=== PATIENT | female | born 1950 | race Caucasian/White ===

== ENCOUNTER 2022-05-23 11:02 | Outpatient (REF) | payer MEDICARE, OTHER, SELFPAY ==
--- NOTE | ~2022-05-23 | XR_ITS ---
EXAMINATION: XR KNEE, LEFT CLINICAL INFORMATION: Pain. COMPARISON: None available. TECHNIQUE: Four views of the left knee. FINDINGS: There is mild reduction in tricompartment joint space. No bony erosive changes, acute fracture or dislocation. There are 2 loose body seen lateral to the patella the larger one inferiorly measures 8mm and the smaller 1's. And lateral patella measures 7 mm. There is minimal suprapatellar joint effusion. A small anterior superior patellar enthesophyte is noted. XR/XR knee LT 4V IMPRESSION: 1. Mild degenerative changes left knee with minimal suprapatellar joint effusion. 2. There are 2 loose bodies seen lateral to the patella. 3. No acute fracture or dislocation seen.
== END 2022-05-23 11:03 | disposition home or self-care (01) ==
LOC: HO.HMGCX 11:02
PROVIDERS: Visit Provider Internal Medicine
DX: M25.562 Pain in left knee (principal)
CPT/HCPCS: 73564

== ENCOUNTER 2023-03-22 12:33 | Emergency (ER) | payer MEDICARE, OTHER, SELFPAY ==
[2023-03-22 12:46] VITALS: BP 154/72; PULSE 70; RESP 18; TEMP 37; O2SAT 100; BMI 38.0
--- NOTE | 2023-03-22 12:46 | ED_ITS ---
HPI - Abdominal Pain General Chief Complaint: Abdominal Pain Stated Complaint: Abd pain Time Seen by Provider: 03/22/23 15:00 Source: patient and family Mode of arrival: ambulatory Limitations: no limitations History of Present Illness HPI narrative: Patient is a 72-year-old female presenting to the emergency department with complaint of episode of epigastric/sternal pain which began this morning after eating breakfast. Patient reports that the pain lasted for approximately 30 minutes. She took Tums with gradual relief. She complains of some belching and mild nausea. Denies associated dyspnea, palpitations. Denies fevers. Denies recent calf pain or swelling, lower extremity edema. She reports similar episode of pain 2-3 days ago, but rates that pain at 4 or 5/10, and rates today's episode as 10/10. Also reports an episode of pain to posterior aspect of left upper arm 2 days ago, separate from the episode of epigastric pain 2 days ago. History of frozen shoulder, but states does not typically get pain to her upper arm. Arm pain has since resolved and has not returned. She is pain free at this time. Denies any vomiting, diarrhea, or constipation. Denies urinary symptoms. MD elicited complaint: abdominal pain Onset (ago): hour(s) Pain Consistency: now resolved Location: epigastric Severity: severe Pain scale (0-10): 10 Quality: sharp Radiation: none Migration to: no migration Exacerbating factors: nothing Relieving factors: medication Associated symptoms: denies other symptoms Treatments prior to arrival: antacids Related Data Previous Rx's Medication Instructions Recorded cephalexin 500 mg capsule 500 mg PO BID #14 caps 03/22/23 Allergies Allergy/AdvReac Type Severity Reaction Status Date / Time No Known Allergies Allergy Verified 03/22/23 12:50 Review of Systems Review of Systems As per HPI. Yes all other systems are reviewed and are negative Constitutional: Reports as per HPI [facility] Social History Social History Patient Tobacco Use Status: Never used Tobacco Advance Directives: No Advance Directives Information Provided: Yes Physical Exam ED Vital Signs: Vital Signs - 24 hr 03/22/23 12:46 03/22/23 14:00 03/22/23 16:00 Temperature 98.6 F 98.0 F 98.1 F Pulse Rate 70 61 59 Respiratory Rate 18 16 Blood Pressure 154/72 H 150/59 H 148/61 H Pulse Oximetry 100 96 96 Oxygen Delivery Method Room Air Room Air Room Air 03/22/23 17:14 Temperature 97.9 F Pulse Rate 62 Respiratory Rate 16 Blood Pressure 189/82 H Pulse Oximetry 97 Oxygen Delivery Method Room Air BMI result Body Mass Index 38.0 Vital signs have been reviewed and appear to be correct. Blood pressure elevated. Heart rate normal. Respiratory rate normal. Temperature normal. Oxygen saturation normal. Const General: cooperative, healthy appearing and no acute distress Orientation/consciousness: oriented to person, oriented to place, oriented to time and patient oriented x3 Limitations: no limitations HENMT Head: Yes normocephalic and Yes atraumatic Ears: external ears normal General nose exam: Normal external nose present Face and sinus: Yes face symmetric Mouth: oropharynx normal and moist mucous membranes Throat: Yes uvula midline Eyes Pupils: Equal, round and reactive pupils present Neck Neck: Yes normal visual inspection and Yes supple Resp Effort & Inspection: normal respiratory effort and able to speak in complete sentences Auscultation: clear to auscultation bilaterally Cardio Rate: regular rate Rhythm: regular rhythm Heart sounds: S1 normal heart sound present and S2 normal heart sound present GI Palpation (GI): Soft to palpation and nontender Auscultation: normoactive bowel sounds General: Yes no CVA tenderness Back/Spine/Pelvis Back: no CVA tenderness Skin General skin exam: elasticity normal and turgor normal Neuro General: oriented to person, oriented to place, oriented to time, patient oriented x3, moves all extremities, no focal motor deficits and CN's II-XI intact bilaterally Cranial nerves: Yes Equal, round and reactive pupils present Cognition (Neuro): normal cognition Extrem General: Yes full ROM, Yes no pedal edema and Yes no calf tenderness Psych Mental Status: mental status grossly normal Affect: normal affect Thought process: Normal thought process present Course Course Course Narrative: This is an RME: Additional HPI, ROS, PE not included below will be deferred to primary provider. Patient is a 72-year-old female presents emergency department for evaluation of abdominal pain. Reports that she had breakfast and then noticed the pain a couple hours later, localized to the epigastric region. Reports nausea and feeling fatigued. No vomiting, fevers, chills. Reports it does not feel like typical indigestion that she would experience. Plan: Labs, EKG Reevaluation(s) Reevaluation #1: 1615-I received sign-out on this patient pending a repeat troponin. Her initial troponin and EKG were reassuring. Reevaluation #2: 1750-patient's repeat troponin was negative. Patient reports no chest pain since being here in the emergency room. Her UA is consistent with UTI. She has no back pain or abdominal seen to suggest pyelonephritis or renal colic. I will treat her with an oral antibiotic. Reviewed worrisome signs and symptoms of when to return to the emergency room. Comfortable plan for discharge home. Medical Decision Making Medical Decision Making [facility] [place] Narrative: Patient is a 72-year-old female presenting to the emergency department with complaint of episode of epigastric/sternal pain which began this morning after eating breakfast. On exam patient is awake, A+Ox3, BP elevated, VS otherwise WNL, afebrile, normal neurological exam without focal deficits, physical exam findings as above. Given reported symptoms and physical exam findings, initial differential includes ACS/AZ, GERD, PUD, gastritis. Labs notable for negative troponin, no significant electrolyte abnormalities, very slightly elevated ALT. EKG shows normal sinus rhythm. HEART score of 2 for age. Abdomen is soft and nontender, will defer imaging at this time. Will repeat troponin to assess for delta. If negative, feel patient is stable for discharge home, can follow up with PCP. Patient signed out to JARED Chirinos pending repeat troponin. Differential Diagnosis Differential Diagnoses: The differential diagnosis associated with the presentation includes As per [facility] [place] Admission/Observation Consideration of admission/observation: Escalation of care including admission/observation considered Lab Data [facility] [place] Lab Attestation statement: I reviewed the patient's lab results. As per [facility] [place] 03/22/23 13:55 03/22/23 13:55 Labs: Lab Results 03/22/23 03/22/23 03/22/23 Range/Units 13:55 17:09 17:18 WBC 10.1 (4.8-10.8) X10*3/uL RBC 4.70 (4.20-5.50) X10*6/uL Hgb 14.1 (12.0-16.0) g/dl Hct 42.6 (37.0-47.0) % MCV 90.6 (80.0-98.0) fL MCH 30.0 (27.0-33.0) pg MCHC 33.1 (31.0-35.0) g/dl RDW 12.3 (11.0-16.0) % Plt Count 238 (160-400) X10*3/uL MPV 9.7 (9.4-12.3) fL Immature Gran % (Auto) 0.4 (0.0-0.4) % Neut % (Auto) 54.4 (45-73) % Lymph % (Auto) 34.6 (20-40) % Sac % (Auto) 8.6 (2-11) % Eos % (Auto) 1.1 (0-4) % Baso % (Auto) 0.9 (0-2) % Lymph # (Auto) 3.5 (1.2-4.9) X10*3/uL Sac # (Auto) 0.9 (0.1-1.2) X10*3/uL Eos # (Auto) 0.1 (0.0-0.4) X10*3/uL Baso # (Auto) 0.1 (0.0-0.2) X10*3/uL Abs Immat Gran (auto) 0.04 H (0.00-0.03) X10*3/uL Absolute Neuts (auto) 5.5 (2.0-8.3) x10*3/uL Absolute Nucleated RBC 0.000 (0.0-0.012) X10*3/uL Nucleated RBC % (auto) 0.0 (0.0-0.2) /100WBC Sodium 139 (135-145) mmol/L Potassium 4.4 (3.3-5.1) mmol/L Chloride 105 (96-108) mmol/L Carbon Dioxide 27 (22-29) mmol/L Anion Gap 11 L (12-20) BUN 18 H (9-16) mg/dL Creatinine 0.78 (0.5-1.4) mg/dL Estim Creat Clear Calc 67.7 Estimated GFR > 60 Random Glucose 98 (60-115) mg/dL Calcium 9.6 (8.4-10.2) mg/dL Total Bilirubin 0.4 (0.0-1.0) mg/dL AST 23 (5-31) U/L ALT 33 H (0-31) U/L Alkaline Phosphatase 78 (39-117) U/L Troponin I High Sens < 2.7 < 2.7 (<3.5-17.0) ng/L Total Protein 7.2 (6.5-8.0) g/dL Albumin 4.3 (3.5-5.0) g/dL Lipase 29 (8-78) U/L Urine Color Yellow Urine Appearance Clear Urine pH 5.5 (5.0-9.0) Ur Specific [place] 1.020 (1.005-1.025) Urine Protein Negative (Neg-Trace) mg/dL Urine Glucose (UA) Negative (Negative) mg/dL Urine Ketones Negative (Negative) mg/dL Urine Blood Moderate (2+) H (Negative) Urine Nitrite Negative (Negative) Ur Leukocyte Esterase Small (1+) H (Negative) Urine RBC 6-10 H (0-2) /HPF Urine WBC 11-20 H (0-5) /HPF Ur Squamous Epith Cells 0-2 (0-2) /HPF Urine Bacteria None Seen (None Seen) Hyaline Casts 0-2 (0-2) /LPF Independent Interpretation I performed an independent interpretation of an: EKG (normal sinus rhythm, rate 61bpm, normal ME interval and QTc) External Record Review External record reviewed: Inpatient record, Office record and Outpatient record Scores Heart Score History: -0- slightly suspicious ECG: -0- normal Age: -2- > or = 65 Risk factory: -0- no risk factors known Troponin: -0- < or = normal limit Score: 2 Risk: 1.7% Discharge Plan Discharge Clinical Impression: Chest pain, Acute UTI Patient Disposition: Home, Self-Care Instructions: Chest Pain (DC), Urinary Tract Infection in Women (ED), Epigastric Pain (ED) Additional Instructions: You were evaluated in the emergency department today for epigastric and chest pain. Your evaluation has shown no signs of medical conditions requiring emergent intervention at this time, however we recommend that you follow-up with your primary care physician or your metal fabrication supervisor as soon as possible for further testing as an outpatient. Please schedule an appointment for follow-up with your primary care physician as soon as possible. Return to the emergency department if you experience worsening or uncontrolled chest pain, shortness of breath, lightheadedness, feeling faint, loss of consciousness, nausea, vomiting, or any other concerning symptoms. Prescriptions: New cephalexin 500 mg capsule 500 mg PO BID Qty: 14 0RF
--- NOTE | 2023-03-22 12:49 | ECG_ITS ---
Test Reason : EPIGASTRIC PAIN Blood Pressure : / mmHG Vent. Rate : 061 BPM Atrial Rate : 061 BPM P-R Int : 144 ms QRS Dur : 078 ms QT Int : 466 ms P-R-T Axes : 044 004 026 degrees QTc Int : 469 ms Normal sinus rhythm Normal ECG No previous ECGs available Referred By: Altagracia Velasco Electronically Signed By:AVTAR MORAN
[2023-03-22 14:00] VITALS: BP 150/59; PULSE 61; TEMP 36.7; O2SAT 96
[2023-03-22 14:03] LABS: MANUAL DIFF FLAG NO
[2023-03-22 14:04] LABS: Basophils Absolute Auto 0.1 X10*3/uL (0.0-0.2); Basophils Percent Auto 0.9 % (0-2); Eosinophils Absolute Auto 0.1 X10*3/uL (0.0-0.4); Eosinophils Percent Auto 1.1 % (0-4); Hematocrit 42.6 % (37.0-47.0); Hemoglobin 14.1 g/dl (12.0-16.0); Imm Gran Abs Auto 0.04 X10*3/uL (0.00-0.03); Imm Gran Pct Auto 0.4 % (0.0-0.4); Lymphocytes Absolute Auto 3.5 X10*3/uL (1.2-4.9); Lymphocytes Percent Auto 34.6 % (20-40); Mean Corpuscular HGB Conc 33.1 g/dl (31.0-35.0); Mean Corpuscular Volume 90.6 fL (80.0-98.0); Mean Platelet Volume 9.7 fL (9.4-12.3); Monocytes Absolute Auto 0.9 X10*3/uL (0.1-1.2); Monocytes Percent Auto 8.6 % (2-11); Neutrophils Absolute Auto 5.5 x10*3/uL (2.0-8.3); Neutrophils Percent Auto 54.4 % (45-73); Platelet Count 238 X10*3/uL (160-400); Red Cell Distribution Width 12.3 % (11.0-16.0); White Blood Count 10.1 X10*3/uL (4.8-10.8)
[2023-03-22 14:22] LABS: Alanine Aminotransferase 33 U/L (0-31); Albumin Level 4.3 g/dL (3.5-5.0); Alkaline Phosphatase 78 U/L (39-117); Anion Gap 11 (12-20); Aspartate Amino Transferase 23 U/L (5-31); Bilirubin Total 0.4 mg/dL (0.0-1.0); Blood Urea Nitrogen 18 mg/dL (9-16); Calcium 9.6 mg/dL (8.4-10.2); Carbon Dioxide 27 mmol/L (22-29); Chloride 105 mmol/L (96-108); Creatinine Clr Calc Pharmacy 67.7; Estimated Glomerular Filt Rate > 60; Glucose Random 98 mg/dL (60-115); Lipase 29 U/L (8-78); Potassium 4.4 mmol/L (3.3-5.1); Sodium 139 mmol/L (135-145); Total Protein 7.2 g/dL (6.5-8.0)
[2023-03-22 14:29] LABS: Troponin-I High Sensitivity < 2.7 ng/L (<3.5-17.0)
[2023-03-22 16:00] VITALS: BP 148/61; PULSE 59; RESP 16; TEMP 36.7; O2SAT 96
[2023-03-22 17:14] VITALS: BP 189/82; PULSE 62; RESP 16; TEMP 36.6; O2SAT 97
[2023-03-22 17:26] LABS: Appearance Urine Clear; Color Urine Yellow; Glucose Urine UA Negative (Negative); Leukocyte Esterase Urine Small (1+) (Negative); Nitrite Urine Negative (Negative); PH 5.5 (5.0-9.0); UMIC TRIGGER UACC YES; Urine Blood Moderate (2+) (Negative); Urine Ketones Negative (Negative); Urine Protein Negative (Neg-Trace)
[2023-03-22 17:28] LABS: Bacteria Urine None Seen (None Seen); Hyaline Casts Urine 0-2 /LPF (0-2); Squamous Epithelial Cell Urine 0-2 /HPF (0-2); UACC Culture Trigger YES
[2023-03-22 17:33] LABS: Troponin-I High Sensitivity < 2.7 ng/L (<3.5-17.0)
--- NOTE | 2023-03-22 17:58 | PC.NURSE ---
Pt cleared for discharge, discharge instructions reviewed with pt and at her bedside. Pt was escorted to registration desk to be registered. No complaints on discharge.
== END 2023-03-22 17:58 | disposition home or self-care (01) ==
PROVIDERS: Nurse Practitioner Family; Registered Nurse Emergency; Emergency Provider Emergency Medicine; PCP Family Medicine
DX: R07.9 Chest pain, unspecified (principal); N39.0 Urinary tract infection, site not specified
CPT/HCPCS: 36415; 80053; 81001; 83690; 84484; 85025; 87086; 93005; 99283; 99284

== ENCOUNTER → 2023-03-22 12:49 | Outpatient (BNV) | payer MEDICARE, OTHER, SELFPAY | PROVIDERS: Emergency Provider Emergency Medicine; PCP Family Medicine; Visit Provider Internal Medicine | DX: R10.13 Epigastric pain (principal) | CPT/HCPCS: 93010 ==

== ENCOUNTER 2023-05-16 07:48 | Emergency (ER) | payer MEDICARE, OTHER, SELFPAY ==
--- NOTE | ~2023-05-16 | US_ITS ---
EXAMINATION: US VENOUS ULTRASOUND WITH DOPPLER LOWER EXTREMITY, RIGHT CLINICAL INFORMATION: Right lower extremity pain. COMPARISON: None available. TECHNIQUE: Ultrasound of the deep veins is performed from the hip to the calf with compression sonography and color and pulse Doppler assessment. Spectral analysis with color-flow imaging is performed. FINDINGS: There is nonocclusive echogenic thrombus distending the right posterior tibial vein. There is lack of compressibility. There is normal venous compression and patency of the visualized common femoral vein, saphenofemoral junction, femoral vein, popliteal vein, and peroneal vein without evidence of deep venous thrombosis. If the patient's symptoms persist, followup ultrasound in 5 days 7 days might be of value to exclude proximal propagation from a non-visualized calf vein. US/US venous duplex LE RT IMPRESSION: Nonocclusive thrombus involving the right posterior tibial vein.
--- NOTE | ~2023-05-16 | XR_ITS ---
EXAMINATION: XR knee RT 4V CLINICAL INFORMATION: Reason for Exam pain COMPARISON: None available at the time of this dictation. TECHNIQUE: frontal, lateral, tunnel and patella sunrise views 4 views. FINDINGS: BONES: No fracture or dislocation is present. JOINTS: Mild narrowing of joint spaces suggest mild degenerative osteoarthritis. SOFT TISSUE: Normal XR/XR knee RT 4V IMPRESSION: Mild tricompartment degenerative osteoarthritis.
[2023-05-16 07:59] VITALS: BP 161/87; PULSE 57; RESP 20; TEMP 36.6; O2SAT 95; BMI 39.2
--- NOTE | 2023-05-16 09:34 | ED_ITS ---
HPI - General Adult General Chief complaint: General Medical Stated complaint: R Leg Pain No Injury Time Seen by Provider: 05/16/23 09:01 Source: patient Mode of arrival: ambulatory Limitations: no limitations History of Present Illness HPI narrative: patient is a 73-year-old female who presents emergency department for evaluation of pain to the right lower extremity. She reports approximately 4 5 days ago she felt a tightness to the distal anterior aspect of the right thigh particularly when she was bending the knee. She says that this pain has since developed and described as an intermittent aching/ sharp pain primarily to the posterior thigh, behind the knee, along the medial aspect of the right knee/ calf. Denies any recent injury, prior right lower extremity pain, personal history of DVT /PE / malignancy, known coagulation disorders, recent surgery. She does express that she is typically quite sedentary and does a lot of sitting throughout the day. Related Data Previous Rx's ?Medication ?Instructions ?Recorded cephalexin 500 mg capsule 500 mg PO BID #14 caps 03/22/23 apixaban 5 mg (74 tabs) tablets in 5 mg PO BID #74 ea 05/16/23 a dose pack (EliquReferBright DVT-PE Treat 30D Start) Allergies Allergy/AdvReac Type Severity Reaction Status Date / Time No Known Allergies Allergy Verified 05/16/23 08:00 Review of Systems 2 Review of Systems: Yes all other systems are reviewed and are negative PMFSH Past Medical History Attestation statement: The following information was validated with the patient. Source: old records reviewed Social History Social History Patient Tobacco Use Status: Never used Tobacco Advance Directives: Yes Advance Directives Information Provided: Yes Advance Directives on File: No Physical Exam ED Vital Signs: Vital Signs - 24 hr 05/16/23 07:59 05/16/23 12:06 Temperature 97.8 F 98.1 F Pulse Rate 57 54 Respiratory Rate 20 20 Blood Pressure 161/87 H 121/56 L Pulse Oximetry 95 95 Oxygen Delivery Method Room Air Room Air BMI result Body Mass Index 39.2 Appearance: Alert.?Oriented to person, place and time. No acute distress.?Normal affect. Eyes: Pupils equal, round and reactive to light.? ENT: Pharynx normal.?? Neck: Normal inspection.? Neck supple.?? CVS: Heart sounds normal. Normal heart rate and rhythm.? Pulses normal.?? Respiratory: No respiratory distress.? Lung sounds clear to auscultation bilaterally?? Abdomen: Soft and non-tender. Normoactive bowel sounds. ? Skin: Skin warm and dry.? Normal skin color.? Extremities: 1+ nonpitting bilateral lower extremity edema. Unable to palpate DP/ PT pulse bilaterally, Doppler signal is present..? Right calf tenderness upon palpation. Neuro: Moves all extremities spontaneously. Sensation intact bilaterally. Ambulates with normal steady gait. Course Course Course Narrative: Ultrasound reveals a nonocclusive thrombus of the right posterior tibial vein, I discussed this case with ED attending Dr. Bland, although distal DVT she is symptomatic with pain, recommends initiating anticoagulant, Though if she felt strongly against anticoagulants could consider close follow-up with repeat ultrasound in 1 week. Used shared decision-making with patient, she has elected to begin anticoagulation. CBC is without leukocytosis, anemia, or thrombocytopenia. Coags within normal range. Overall unremarkable CMP. Will begin management with Eliquis 10 mg twice daily for 7 days followed by 5 mg twice daily, outpatient follow-up with PCP/hematology. Discussed bleeding precautions while taking anticoagulants/Eliquis. Patient verbalizes understanding. Stable for discharge. Discussed worrisome signs and symptoms that would warrant re-evaluation in the emergency department. Medications Administered Discontinued Medications Generic Name Dose Route Start Last Admin Trade Name Freq PRN Reason Stop Dose Admin Apixaban 10 mg 05/16/23 11:24 05/16/23 11:30 Apixaban 5 Mg Tablet PO 05/16/23 11:25 10 mg ONCE ONE Administration Medical Decision Making Medical Decision Making [facility] Narrative: patient is a 73-year-old female presenting to emergency department for evaluation of right lower extremity pain as per HPI. Extremity is neurovascularly intact distally, Doppler signal pulses present. No obvious deformity. No rashes or lesions. No erythema or warmth. Plan to obtain serum labs in addition to XR to exclude degenerative changes, venous duplex ultrasound to exclude DVT. Offered pain medication at this time, she however declines. Differential Diagnosis Differential Diagnoses: The differential diagnosis associated with the presentation includes ( DVT, muscular strain, arthritis, Not consistent with ischemic limb, doubt arterial occlusion. Not consistent with cellulitis.) Lab Data [facility] Lab Attestation statement: I reviewed the patient's lab results. 05/16/23 10:50 04/05/24 10:50 Labs: Lab Results 05/16/23 Range/Units 10:50 WBC 8.9 (4.8-10.8) X10*3/uL RBC 4.75 (4.20-5.50) X10*6/uL Hgb 14.4 (12.0-16.0) g/dl Hct 43.4 (37.0-47.0) % MCV 91.4 (80.0-98.0) fL MCH 30.3 (27.0-33.0) pg MCHC 33.2 (31.0-35.0) g/dl RDW 12.3 (11.0-16.0) % Plt Count 234 (160-400) X10*3/uL MPV 9.5 (9.4-12.3) fL Immature Gran % (Auto) 0.3 (0.0-0.4) % Neut % (Auto) 45.2 (45-73) % Lymph % (Auto) 43.9 H (20-40) % [place] % (Auto) 8.1 (2-11) % Eos % (Auto) 1.6 (0-4) % Baso % (Auto) 0.9 (0-2) % Lymph # (Auto) 3.9 (1.2-4.9) X10*3/uL [place] # (Auto) 0.7 (0.1-1.2) X10*3/uL Eos # (Auto) 0.1 (0.0-0.4) X10*3/uL Baso # (Auto) 0.1 (0.0-0.2) X10*3/uL Abs Immat Gran (auto) 0.03 (0.00-0.03) X10*3/uL Absolute Neuts (auto) 4.0 (2.0-8.3) x10*3/uL Absolute Nucleated RBC 0.000 (0.0-0.012) X10*3/uL Nucleated RBC % (auto) 0.0 (0.0-0.2) /100WBC PT 10.6 L (11.1-13.3) SEC INR 0.9 (0.9-1.1) Sodium 142 (135-145) mmol/L Potassium 4.5 (3.3-5.1) mmol/L Chloride 110 H (96-108) mmol/L Carbon Dioxide 25 (22-29) mmol/L Anion Gap 12 (12-20) BUN 17 H (9-16) mg/dL Creatinine 0.70 (0.5-1.4) mg/dL Estim Creat Clear Calc 75.6 Estimated GFR > 60 Random Glucose 97 (60-115) mg/dL Calcium 9.3 (8.4-10.2) mg/dL Total Bilirubin 0.5 (0.0-1.0) mg/dL AST 19 (5-31) U/L ALT 24 (0-31) U/L Alkaline Phosphatase 68 (39-117) U/L Total Protein 7.1 (6.5-8.0) g/dL Albumin 4.0 (3.5-5.0) g/dL Radiology Impression Discussion of test interpretation with radiology: I have reviewed the radiologist's reading. Radiologist Impression: US/US venous duplex LE RT IMPRESSION: Nonocclusive thrombus involving the right posterior tibial vein. Independent Historian Clinical information obtained from an independent historian. History obtained from or confirmed by: Spouse ( Present who confirms history) External Record Review External record reviewed: Outpatient record Critical Care Time Critical Care Time Critical Care Time: Yes Total Critical Care Time: 45 Attestation: I personally attest to this critical care time spent taking care of the patient exclusive of all other billable procedures was approximately 45 minutes including initial evaluation of patient, ordering tests, x-ray interpretation, EKG interpretation, medical consultation, documentation, re-evaluation. Discharge Plan Discharge Clinical Impression: DVT (deep venous thrombosis) Qualifiers: DVT location: lower extremity Affected thrombotic vein of extremity: tibial C hronicity: acute Laterality: right Qualified Code(s): I82.441 - Acute embolism and thrombosis of right tibial vein Patient Disposition: Home, Self-Care Instructions: Deep Vein Thrombosis (ED), Blood Thinners (ED), Deep Vein Thrombosis Prevention (ED) Additional Instructions: You have been started on a blood thinning medications; Eliquis/ apixaban. You will take 10 mg twice daily for 7 days. Then you will take 5 mg twice daily. As discussed it is important that you follow-up with your primary care provider, please call their office today to make them aware that you were seen in the emergency department and diagnosed with a blood clot in your right lower leg. It is important that you seek emergency evaluation if you have any uncontrolled bleeding, fall, head injury of any sort, or any new/ worsening symptoms or concerns. Prescriptions: New Eliquis DVT-PE Treat 30D Start 5 mg (74 tabs) tablets,dose pack 5 mg PO BID Qty: 74 0RF No Action cephalexin 500 mg capsule 500 mg PO BID Qty: 14 0RF Referrals: Tracie Sibley DO [Primary Care Provider] - Interventions: ED Discharge Assessment Last Done: 05/16/23 12:06 Discharge Date/Time: 05/16/23 12:07 Print Language: Tristanian
--- NOTE | 2023-05-16 09:57 | PC.NURSE ---
pt has been resting comfortably in tx area, pedal pulses are difficult to palpate but present on doppler with earth moving technician. pt in no distress, able to ambulate well. r leg not swollen, appears normal compared to R. awaiting us.
[2023-05-16 10:55] LABS: MANUAL DIFF FLAG NO
[2023-05-16 10:57] LABS: Basophils Absolute Auto 0.1 X10*3/uL (0.0-0.2); Basophils Percent Auto 0.9 % (0-2); Eosinophils Absolute Auto 0.1 X10*3/uL (0.0-0.4); Eosinophils Percent Auto 1.6 % (0-4); Hematocrit 43.4 % (37.0-47.0); Hemoglobin 14.4 g/dl (12.0-16.0); Imm Gran Abs Auto 0.03 X10*3/uL (0.00-0.03); Imm Gran Pct Auto 0.3 % (0.0-0.4); Lymphocytes Absolute Auto 3.9 X10*3/uL (1.2-4.9); Lymphocytes Percent Auto 43.9 % (20-40); Mean Corpuscular HGB Conc 33.2 g/dl (31.0-35.0); Mean Corpuscular Hemoglobin 30.3 pg (27.0-33.0); Mean Corpuscular Volume 91.4 fL (80.0-98.0); Mean Platelet Volume 9.5 fL (9.4-12.3); Monocytes Absolute Auto 0.7 X10*3/uL (0.1-1.2); Monocytes Percent Auto 8.1 % (2-11); Neutrophils Percent Auto 45.2 % (45-73); Platelet Count 234 X10*3/uL (160-400); Red Blood Count 4.75 X10*6/uL (4.20-5.50); Red Cell Distribution Width 12.3 % (11.0-16.0); White Blood Count 8.9 X10*3/uL (4.8-10.8)
[2023-05-16 11:03] LABS: INTERNATIONAL NORM RATIO 0.9 (0.9-1.1); Prothrombin Time 10.6 SEC (11.1-13.3)
[2023-05-16 11:09] LABS: Alanine Aminotransferase 24 U/L (0-31); Alkaline Phosphatase 68 U/L (39-117); Anion Gap 12 (12-20); Aspartate Amino Transferase 19 U/L (5-31); Bilirubin Total 0.5 mg/dL (0.0-1.0); Blood Urea Nitrogen 17 mg/dL (9-16); Calcium 9.3 mg/dL (8.4-10.2); Carbon Dioxide 25 mmol/L (22-29); Chloride 110 mmol/L (96-108); Creatinine Clr Calc Pharmacy 75.6; Estimated Glomerular Filt Rate > 60; Glucose Random 97 mg/dL (60-115); Potassium 4.5 mmol/L (3.3-5.1); Sodium 142 mmol/L (135-145); Total Protein 7.1 g/dL (6.5-8.0)
[2023-05-16] MEDS: Apixaban 5 MG TABLET 10 MG PO (11:30)
[2023-05-16 12:06] VITALS: BP 121/56; PULSE 54; RESP 20; TEMP 36.7; O2SAT 95
== END 2023-05-16 12:07 | disposition home or self-care (01) ==
PROVIDERS: Nurse Practitioner Family; Emergency Provider Emergency Medicine; PCP Family Medicine
DX: I82.441 Acute embolism and thrombosis of right tibial vein (principal)
CPT/HCPCS: 36415; 73564; 80053; 85025; 85610; 93971; 99282

== ENCOUNTER 2023-07-01 10:46 | Outpatient (AMB) | payer MEDICARE, OTHER, SELFPAY ==
[2023-07-01 10:51] VITALS: BP 140/64; PULSE 58; O2SAT 97; BMI 39.4
--- NOTE | 2023-07-01 10:51 | A.OFFVIS_ITS ---
Vital Signs 07/01/23 10:51 Height 5 ft 2 in Weight 215 lb 2.738 oz BMI 39.4 BP 140/64 H Blood Pressure Location Lt brachial Position Sitting Pulse 58 Pulse Source Pulse Oximeter Pulse Oximetry (%) 97 Intake Visit Reasons: INSPECTOR MATERIAL DISPOSITION/Dr. Sibley/Palpitations Clinical Trial Data Manager Required: No Accompanied by: Significant Other Allergies No Known Allergies Allergy (Verified 05/16/23 08:00) Medication List - Last Reconciled 07/01/23 by Marcelo Mathews MD apixaban (Eliquis DVT-PE Treat 30D Start) 5 mg PO BID HPI Comments Details: Mercedes is here for consultation regarding palpitations. She states that she was recently here for a DVT issue and after that, she was put on Eliquis. Then she started noticing some heart fluttering sensations and she thought it was the medication leading to it. There is no history of any coronary artery disease or myocardial infarction or cardiomyopathy or cardiac arrhythmias or in fact anything cardiac. No other symptoms like angina or shortness of breath. Blood pressures had been up and down but she states she does not have hypertension. Per patient, elevated lipids in the past but she has not on any statins. [facility] Medical History (Updated 07/01/23 @ 11:52 by Marcelo Mathews MD) Nonalcoholic fatty liver Obstructive sleep apnea Morbid obesity Nephrolithiasis Irritable bowel syndrome Hyperlipidemia Gastroesophageal reflux disease with esophagitis Adenomatous polyp of colon Gastric ulcer Family History (Updated 07/01/23 @ 10:56 by Rahel Staton CMA) Brother Heart attack Social History (Updated 07/01/23 @ 10:57 by Rahel Staton CMA) Alcohol intake: never Patient Tobacco Use Status: Never used Tobacco Review of Systems Const Denies chills, Denies fatigue, Denies fever(s), Denies frequent falls, Denies weakness, Denies weight gain and Denies weight loss ENT Denies dizziness Card Denies chest pain, Denies leg edema, Denies lightheadedness, Denies palpitations, Denies dyspnea, Denies dyspnea on exertion and Denies orthopnea Resp Denies cough, Denies dyspnea and Denies dyspnea on exertion GI Denies bloating and Denies change in bowel habits Musc Denies muscle weakness, Denies numbness and Denies tingling Neuro Denies dizziness, Denies frequent falls, Denies numbness, Denies tingling and Denies weakness Endo Denies fatigue and Denies palpitations Physical Exam Vital Signs: Last Vital Signs Pulse 58 07/01/23 10:51 BP 140/64 H 07/01/23 10:51 Pulse Ox 97 07/01/23 10:51 BMI result Body Mass Index 39.4 Const General: comfortable and no acute distress Orientation/consciousness: patient oriented x3 HEENT Other: Unremarkable Head: Yes normal to inspection Neck Neck: Yes normal visual inspection Chest Chest palpation & inspection: normal inspection of the chest Resp Auscultation: clear to auscultation bilaterally Cardio Palpation: normal PMI Heart sounds: S1 normal heart sound present, S2 normal heart sound present, no gallops, no murmurs and no rubs GI Palpation (GI): Soft to palpation Back/Spine/Pelvis Other: unremarkable Skin General skin exam: no rashes or lesions noted Neuro General: patient oriented x3 Extrem General: Yes normal to inspection Psych Mental Status: mental status grossly normal Assessment & Plan Assessment & Plan (1) Heart palpitations: Code(s): R00.2 - Palpitations Category: Medical (2) Morbid obesity: Code(s): E66.01 - Morbid (severe) obesity due to excess calories Category: Medical (3) Obstructive sleep apnea: Code(s): G47.33 - Obstructive sleep apnea (adult) (pediatric) Category: Medical Plan Recent onset palpitations of uncertain etiology. Could be supraventricular ventricular ectopy. Atrial arrhythmias like atrial fibrillation also possible as she has obesity as well as obstructive sleep apnea. Will start with an echocardiogram and Holter monitor. Further plan after the above reviewed. Orders: Orders CA echo transthoracic complete Today R00.2 - Palpitations ECG 7 day holter monitor Today R00.2 - Palpitations Coding Level of Care Code New Pt Level 4 (94481) Diagnoses Heart palpitations R00.2 Morbid obesity E66.01 Obstructive sleep apnea G47.33
== END 2023-07-01 11:21 | disposition home or self-care (01) ==
PROVIDERS: PCP Family Medicine; Visit Provider Internal Medicine
DX: R00.2 Palpitations (principal); E66.01 Morbid (severe) obesity due to excess calories; G47.33 Obstructive sleep apnea (adult) (pediatric)
CPT/HCPCS: 99204

== ENCOUNTER → 2023-07-01 10:46 | Outpatient (BNVA) | payer MEDICARE, OTHER, SELFPAY | PROVIDERS: PCP Family Medicine; Visit Provider Internal Medicine | DX: R00.2 Palpitations (principal); G47.33 Obstructive sleep apnea (adult) (pediatric); E66.01 Morbid (severe) obesity due to excess calories; Z68.39 Body mass index [BMI] 39.0-39.9, adult | CPT/HCPCS: 99202 ==

== ENCOUNTER → 2023-07-28 08:29 | Outpatient (REF) | payer MEDICARE, OTHER, SELFPAY ==
--- NOTE | 2023-07-28 08:32 | HM_ITS ---
* Total monitoring time 7 days. * Underlying rhythm is sinus with an average rate of 79/Min. * Occasional supraventricular ectopy with a burden of 0.4%. * Very rare ventricular ectopy. * Patient marker used once in association with sinus tachycardia. * No diary events. MTDD
--- NOTE | 2023-07-28 08:32 | CA_ITS ---
Transthoracic Echocardiogram Patient (Last, First, Middle): Toan Crystal F Gender: Female Date of : 1950 Age: 73 Procedure Date: 07/28/2023 Procedure Type: Transthoracic Echocardiogram Location: OP Height: 157.48 cm Weight: 96.16 kg BSA: 1.96 m2 Heart Rate: 57 bpm BP: 145 / 75 mmHg Research Food Technologist: ANNA Referring MD: Marcelo Mathews MD Symptoms: R00.2 - Palpitations Study Quality: Fair ECG Rhythm: Bradycardia Conclusions: - The left ventricular systolic function is hyperdynamic. The visually estimated ejection fraction is >70%. - There is mildly increased left ventricular wall thickness. - There is mild calcification of the aortic valve. - There is mild mitral annular calcification. Findings Left Ventricle Normal left ventricular cavity size. There is mildly increased left ventricular wall thickness. The left ventricular systolic function is hyperdynamic. The visually estimated ejection fraction is >70%. There is no evidence of regional wall motion abnormalities. Evidence suggests grade I (mild) diastolic dysfunction. LV peak GLS -17.9%, possibly underestimate. Right Ventricle Normal right ventricular cavity size and systolic function. Atria Both atria are normal in size. Aortic Valve There is a normal trileaflet aortic valve. There is mild calcification of the aortic valve. There is no aortic valve stenosis. There is no aortic valve regurgitation. Mitral Valve There is mild mitral annular calcification. There is trace mitral valve regurgitation. There is no mitral valve stenosis. Pulmonic Valve The pulmonic valve is likely normal. Tricuspid Valve There is trace tricuspid valve regurgitation. There is no evidence of pulmonary hypertension. Great Vessels The asc aorta is normal in size. Venous The inferior vena cava is normal in size and collapses greater than 50% with inspiration. Pericardium/Pleural There is no evidence of pericardial effusion. Prior Study Comparison No prior study available for comparison. Measurements 2D Linear Measurements IVSd: 1.22 0.6-0.9/0.6-1.0 cm LVIDd: 4.47 3.9-5.3/4.2-5.9 cm LVIDd Index: 2.28 2.4-3.2/2.2-3.1 cm/m2 LVIDs: 2.56 2.0-3.6 cm LVPWd: 1.21 0.7-1.1 cm LA Diam: 4.30 2.7-3.8/3.0-4.0 cm LAIDs Index: 2.19 1.5-2.3 cm/m2 LV Mass: 248.76 67-162/88-224 g LV Mass Index: 126.92 43-95/49-115 g/m2 LVOT Diam: 1.90 3.0+(-)1.3 cm 2D Systolic Function EF 4C: 71.00 >55% EF 2C: 72.10 >55% EF BiP: 72.10 >55% Mitral Valve MV Pk E: 1.09 MV PK A: 1.19 MV Decel Time: 294.00 E/A: 0.90 E'Lateral: 5.77 E'Medial: 5.11 E/E' Med: 21.30 E/E' Lat: 18.90 PHT: 86.00 MVA PHT: 2.56 Decel Sabine: 3.71 Aortic Valve AoV Pk Francisco: 1.76 AoV Mn Francisco: 1.18 AoV VTI: 0.43 AoV Pk Grad: 12.00 Aov Mn Grad: 7.00 LOBITO Cont.VTI: 2.03 LVOT LVOT Pk Francisco: 1.27 LVOT Mn Francisco: 0.85 LVOT VTI: 0.31 LVOT Pk Grad: 6.00 LVOT Mn Grad: 3.00 LVOT Diam: 1.90 LVOT Area: 2.84 Diastolic Function MV Pk E: 1.09 MV Pk A: 1.19 E/A: 0.90 E'Medial: 5.11 E/E' Med: 21.30 E' Laterial: 5.77 E/E' Lat: 18.90 Right Ventricle TAPSE (mm): 18.90 TVS' Francisco: 12.20 Tricuspid Valve TR Pk Francisco: 1.75 TR Pk Grad: 12.00 RA Press: 3.00 RVSP: 15.00 Great Vessels Aorta Sinus of Valsalva: 2.80 2.0-3.5 cm Ao Asc: 3.20 2.1-3.4 cm Pulmonary Valve PV Pk Francisco: 1.33 Peak PV Grad: 7.00 Updated in Other Vendor System with Status of Final Marcelo Mathews MD electronically signed on 07/29/2023 9:57:41 AM with status of Final
== END ==
LOC: HO.CARD 08:29
PROVIDERS: PCP Family Medicine; Visit Provider Internal Medicine
DX: R00.2 Palpitations (principal)
CPT/HCPCS: 93242; 93306; 93356

== ENCOUNTER → 2023-07-28 08:32 | Outpatient (BNV) | payer MEDICARE, OTHER, SELFPAY | PROVIDERS: PCP Family Medicine; Visit Provider Internal Medicine | DX: I47.10 Supraventricular tachycardia, unspecified (principal) | CPT/HCPCS: 93244; 93306; 93356 ==

== ENCOUNTER 2023-09-15 09:39 | Outpatient (AMB) | payer MEDICARE, OTHER, SELFPAY ==
[2023-09-15 10:05] VITALS: BP 138/70; PULSE 54; BMI 38.7
--- NOTE | 2023-09-15 10:05 | A.OFFVIS_ITS ---
Vital Signs 09/15/23 10:05 Height 5 ft 2 in Weight 211 lb 10.3 oz BMI 38.7 BP 138/70 Blood Pressure Location Lt brachial Position Sitting Pulse 54 Pulse Source Pulse Oximeter Intake Visit Reasons: 3mth after testing -echo/holter Director Of Business Operations Required: No Wind Turbine Technician: Wind Turbine Technician Present Allergies No Known Allergies Allergy (Verified 09/15/23 10:07) Medication List - Last Reconciled 09/15/23 by Alisa Taylor NP-C No Known Home Meds HPI HPI 3mth after testing -echo/holter: Details: Toan is a 73-year-old female with past medical history of obesity, sleep apnea, DVT was being evaluated for heart palpitations. She recently underwent an echocardiogram and Holter monitor and now presents for follow-up. Today she reports that she is no longer having heart palpitations. She says she was feeling them when she was on Eliquis and believes it was related to the medication. After stopping Eliquis her palpitations resolved. She is not having any chest discomfort at rest or with activity. No shortness of breath, PND, orthopnea or edema. No lightheadedness, presyncope, syncope, falls. She is not on any routine medications. She does not check her blood pressure at home. [facility] Medical History Nonalcoholic fatty liver Obstructive sleep apnea Morbid obesity Nephrolithiasis Irritable bowel syndrome Hyperlipidemia Gastroesophageal reflux disease with esophagitis Adenomatous polyp of colon Gastric ulcer Family History Brother Heart attack Social History Alcohol intake: never Patient Tobacco Use Status: Never used Tobacco Review of Systems Const All systems reviewed & are unremarkable except as noted in HPI and below ENT Denies dizziness Card Denies chest pain, Denies chest pain at rest, Denies chest pain with activity, Denies rapid heart rate, Denies pedal edema, Denies edema, Denies leg edema, Denies lightheadedness, Denies palpitations, Denies dyspnea, Denies dyspnea on exertion and Denies orthopnea Resp Denies cough, Denies dyspnea and Denies dyspnea on exertion GI Denies hematochezia and Denies change in stool character Musc Denies abnormal gait, Denies limited range of motion, Denies muscle cramps, Denies muscle weakness, Denies numbness, Denies radiating pain into limb, Denies stiffness and Denies tingling Neuro Denies abnormal gait, Denies dizziness, Denies numbness and Denies tingling Endo Denies palpitations Physical Exam Vital Signs: Last Vital Signs Pulse 54 09/15/23 10:05 BP 138/70 09/15/23 10:05 BMI result Body Mass Index 38.7 Const General: cooperative, healthy appearing, comfortable and no acute distress Neck Neck: Yes normal visual inspection and Yes no JVD Resp Effort & Inspection: normal respiratory effort Auscultation: clear to auscultation bilaterally, no crackles, no rales, no rhonchi and no wheezes Cardio Jugular venous distension: no JVD Rate: regular rate Rhythm: regular rhythm Heart sounds: S1 normal heart sound present, S2 normal heart sound present, no murmurs and no rubs Skin General skin exam: no rashes or lesions noted Extrem General: Yes normal to inspection and No no pedal edema Psych Appearance: grossly normal Mental Status: mental status grossly normal Speech and movement: Normal speech and movement present Assessment & Plan Assessment & Plan (1) Heart palpitations: Code(s): R00.2 - Palpitations Category: Medical Plan: Report of heart palpitations that was occurring while she was on Eliquis. She stopped Eliquis and her palpitations resolved. With her history of obesity and sleep apnea there was concern for possible atrial fibrillation. She had an echocardiogram 07/28/2023 showing EF greater than 70%, mild LVH, mild calcification of the aortic valve, mild mitral annual calcification. A Holter monitor was done 07/28/2023 for 7 days showing sinus rhythm with average heart rate 79, SVE 0.4% of time, rare ventricular ectopy, symptom marker correlated with sinus tachycardia. Test results reviewed with her. No concerning cardiac findings that contribute to her symptom. Instructed to call this office if she does have recurrent heart palpitations, emergency care if warranted. Cardiology follow-up 1 year, sooner if needed. (2) Obstructive sleep apnea: Code(s): G47.33 - Obstructive sleep apnea (adult) (pediatric) Category: Medical Plan: Increases her risk for atrial fibrillation (3) LVH (left ventricular hypertrophy): Code(s): I51.7 - Cardiomegaly Category: Medical Plan: Mild LVH seen on recent echocardiogram. She does have obesity and borderline blood pressures each of which can contribute to this finding. Discuss this with her. Suggested she obtain a home blood pressure cuff and take periodic readings then discuss with PCP. She is currently not on any antihypertensives and has never been labeled with hypertension. She is going to work on weight loss with diet control and increasing her physical activity. Applauded on this. (4) Morbid obesity: Code(s): E66.01 - Morbid (severe) obesity due to excess calories Category: Medical Plan: As above Plan Time spent on chart review, documentation, interview and assessment Coding Level of Care Code Est Pt Level 3 (76957) Diagnoses Heart palpitations R00.2 Obstructive sleep apnea G47.33 LVH (left ventricular hypertrophy) I51.7 Morbid obesity E66.01 Time Spent (min) 24
== END 2023-09-15 10:50 | disposition home or self-care (01) ==
PROVIDERS: PCP Family Medicine; Visit Provider Nurse Practitioner Family
DX: R00.2 Palpitations (principal); G47.33 Obstructive sleep apnea (adult) (pediatric); I51.7 Cardiomegaly; E66.01 Morbid (severe) obesity due to excess calories
CPT/HCPCS: 99213

== ENCOUNTER → 2023-09-15 09:39 | Outpatient (BNVA) | payer MEDICARE, OTHER, SELFPAY | PROVIDERS: PCP Family Medicine; Visit Provider Nurse Practitioner Family | DX: I51.7 Cardiomegaly (principal); G47.33 Obstructive sleep apnea (adult) (pediatric); R00.2 Palpitations; E66.01 Morbid (severe) obesity due to excess calories | CPT/HCPCS: 99212 ==

== ENCOUNTER 2024-04-03 13:23 | Emergency (ER) | payer MEDICARE, OTHER, SELFPAY ==
--- NOTE | ~2024-04-03 | US_ITS ---
CLINICAL HISTORY: pain, swelling, concern for DVT Venous duplex ultrasound right lower extremity Comparison: US/IN/SR - US VENOUS DUPLEX LE RT - 05/16/23 09:58 EDT Findings: The visualized deep veins are fully compressible with normal Doppler color flow and spectral tracings. No popliteal cyst. IMPRESSION: 1. Negative for right lower extremity deep vein thrombosis. This document has been electronically signed by: Helga Craig MD on 04/03/2024 15:32:47
[2024-04-03 13:35] VITALS: BP 184/55; PULSE 70; RESP 18; TEMP 36.6; O2SAT 97; BMI 39.6
--- NOTE | 2024-04-03 13:37 | ED.GENADULT ---
HPI - General Adult General Chief complaint: Extremity Injury, Lower Stated complaint: R Leg pain ; hx of blood clot Time Seen by Provider: 04/03/24 16:07 Source: patient, family and old records reviewed Mode of arrival: ambulatory Limitations: no limitations History of Present Illness ED Provider: GURMEET HPI narrative: 73 yo female with PMH of LVH, palpitations, BENNY, DVT R LE s/p 3 months of eliquis in 2023 at this time presents with a couple of days of R posterior knee pain on R side and bigger leg has pain when she sits down. She has no other symptoms such as rash, fevers, CP/SOB MD complaint: R knee posterior pain Onset (ago): day(s) (couple) Location: right and lower extremity Radiation: non-radiation Severity: moderate Quality: aching Pain Consistency: intermittent Relieving factors: none Exacerbating factors: other (sitting) Associated symptoms: denies other symptoms Treatments prior to arrival: none Related Data Home Medications ?Medication ?Instructions ?Recorded ?Confirmed No Known Home Meds 09/15/23 09/15/23 Allergies Allergy/AdvReac Type Severity Reaction Status Date / Time No Known Allergies Allergy Verified 04/03/24 13:36 Review of Systems Review of Systems: Constitutional : No Fever, No Chills ENT/Mouth : No Ear Pain, No Hoarseness, No sore throat Eyes: No Eye Pain, No Swelling, No Redness, No Foreign Body Cardiovascular : No Chest Pain, No SOB, pos calf pain Respiratory : No Cough, No Dyspnea Gastrointestinal : No Nausea, No Vomiting, No Diarrhea, No abdominal Pain Genitourinary : No Dysuria, No Hematuria Musculoskeletal : positive joint pain, No Myalgias, No Joint Swelling Skin : No Skin lacerations, No rash Neuro : No Weakness, No Numbness, No Loss of Consciousness, No Dizziness, No Headache All other systems reviewed and are negative [facility] Past Medical History Attestation statement: The following information was validated with the patient. Source: old records reviewed Medical History Nonalcoholic fatty liver Obstructive sleep apnea Morbid obesity Nephrolithiasis Irritable bowel syndrome Hyperlipidemia Gastroesophageal reflux disease with esophagitis Adenomatous polyp of colon Gastric ulcer Family History Family History Brother Heart attack Social History Social History Alcohol intake: never Patient Tobacco Use Status: Never used Tobacco Advance Directives: No Advance Directives Information Provided: No Do you have a plan to hurt others: No Plan Physical Exam ED Vital Signs: Vital Signs - 24 hr 04/03/24 13:35 04/03/24 16:26 Temperature 97.8 F 98.6 F Pulse Rate 70 73 Respiratory Rate 18 20 Blood Pressure 184/55 H 168/65 H Pulse Oximetry 97 98 Oxygen Delivery Method Room Air Room Air BMI result Body Mass Index 39.6 Appearance: Alert. Oriented X3. No acute distress. Eyes: R pupil 4mm reactive. L eye cataract noted ENT: Pharynx normal. Neck: Normal inspection. Neck supple. CVS: Normal heart rate and rhythm. Pulses normal. Respiratory: No respiratory distress. Breath sounds normal. Abdomen: Soft and nontender. Skin: Skin warm and dry. Normal skin color. Normal skin turgor. Extremities: R knee posterior joint pain and pain along R lateral joint line no redness or warmth, mild R ankle pitting edema, no signs of infection, pulses intact Neuro: Oriented X 3. No motor deficit. No sensory deficit. CN2-12 intact Course Course Course Narrative: RME performed by Shannon Peres PA-C. Patient is a 73 year old assigned female at presenting to the emergency department with right lower leg pain and concern for a blood clot. Detailed physical exam and review of systems are deferred to the silviculturist. Imaging ordered. Patient placed back in the waiting room pending room availability and results. Medical Decision Making Medical Decision Making MDM Narrative: 73 you female with PMH of LVH, palpitations, BENNY, DVT R LE s/p 3 months of eliquis in 2023 here with R leg pain when sitting she has no signs of infection, has mild ankle edema not significantly bigger than L side - she has no CP/SOB, pulses are intact at this time given her history DVT study ordered. No trauma does not need xray at this time DVT negative will repeat in 5 days given her clinical history Differential Diagnosis Differential Diagnoses: The differential diagnosis associated with the presentation includes DVT, joint pain, arthralgia, effusion Independent Interpretation I performed an independent interpretation of an: Ultrasound (no DVT) Radiology Impression Discussion of test interpretation with radiology: I have reviewed the radiologist's reading. Independent Historian Clinical information obtained from an independent historian. History obtained from or confirmed by: Spouse External Record Review External record reviewed: Outpatient record Discharge Plan Discharge Clinical Impression: Acute leg pain Qualifiers: Laterality: right Qualified Code(s): M79.604 - Pain in right leg Patient Disposition: Home, Self-Care Instructions: Leg Pain (ED) Additional Instructions: return for fevers, worsening swelling, chest pain, trouble breathing, red rash or any other concerns REPEAT ULTRASOUND IN 5 DAYS WITH YOUR DOCTOR CLINICAL HISTORY: pain, swelling, concern for DVT Venous duplex ultrasound right lower extremity Comparison: US/SC/SR - US VENOUS DUPLEX LE RT - 05/16/23 09:58 EDT Findings: The visualized deep veins are fully compressible with normal Doppler color flow and spectral tracings. No popliteal cyst. IMPRESSION: 1. Negative for right lower extremity deep vein thrombosis. Prescriptions: No Action No Known Home Meds Interventions: ED Discharge Assessment Last Done: 04/03/24 16:26 Discharge Date/Time: 04/03/24 16:27 Print Language: [place]
--- OUTSIDE RECORDS SUMMARY | 2024-04-03 16:25 | XMS_ITS | Data Portability ---
Author Organization [facility], , [facility] Address [address] [place] [address] Assessment No assessment recorded. Plan of Treatment Reminders Order Date Submit Date Provider Last Modified By Organization Details Last Modified Time Details Appointments None record ed. Lab None record ed. Referral None record ed. Procedures None record ed. Surgeries None record ed. Imaging None record ed. Medication Orders None record ed. Patient TargetsNo targets recorded. Patient InstructionsNo instructions recorded. Reason for Referral None Reported. Results Created Date Observation Date Name Description Value Unit Range Abnormal Flag Note LastModifiedBy Organization Detail LastModifiedTime 05/16/19 22 05/16/2021 SARS- COV-2 RNA (COVI D-19) , QUALI TATIV E NAAT sarscov2 NEGATI VE negati ve normal This test has been autho rized by the FDA under an Emerg ency Use Autho rizat ion(E UA) for you by autho rized labs. Not Available [address], [place], [address], 05/16/2021 14:05:53 Result Notes None recorded. 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 Procedures Surgical History Date Name Laterality Status Provider Name and Address Organization Details Recorded Time 05/18/19 22 Darci - Colonoscopy completed Douglas Bejarano MD [address] [place] [address], [phone], [facility] 05/17/2021 08:15:02 05/18/19 22 Darci - Upper Endoscopy completed Douglas Bejarano MD [address] [place] [address], [phone], [facility] 05/17/2021 08:13:01 03/17/19 20 Darci - Upper Endoscopy completed Douglas Bejarano MD [address] [place] [address], [phone], [facility] 03/17/2019 10:13:51 12/26/19 16 Kimmy - EGD completed Cliff Oneal MD [address] [place] [address], [phone], [facility] 12/26/2015 09:43:59 12/26/19 16 Kimmy - Colonoscopy completed Cliff Oneal MD [address] [place] [address], [phone], [facility] 12/26/2015 09:42:16 08/22/19 07 completed Not Available [facility] 1 06:05:52 04/15/19 04 completed Not Available [facility] 1 06:05:52 07/24/19 02 completed Not Available [facility] 1 06:05:52 Imaging Results None recorded. Procedure Notes None recorded. Medical Equipment None Reported. Allergies No known drug allergies Medications Name Sig Start Date Stop Date Status Note LastModified by Organization Details LastModified Time Culturelle active Not Available Not Av ailable Not Available multivitamin active Not Available Not Available Not Available Vitals None Recorded Social History None recorded. Functional Status None recorded. Mental Status None recorded. Family History Nothing Reported. Medical History No medical history recorded. Gynecological HistoryNo gynecological history recorded. Obstetrics History GPAL:G 0 P 0 0 0 0 Past Encounters Encounter ID Performer Location Encounter Start Date Encounter Closed Date Diagnosis/Indication Diagnosis SNOMED-CT Code Diagnosis ICD10 Code Diagnosis Note [id number] [facility], [address] [address] 02/28/2000 15:20:00 03/02/2008 02:02:29 [id number] [facility], [facility] [place] [address] 03/25/2001 14:55:00 03/02/2008 02:02:29 [id number] [facility], [facility] [place] [address] 07/23/2001 08:29:34 03/02/2008 02:02:29 [id number] [facility], [facility] [place] [address] 04/15/2002 14:06:47 03/02/2008 02:02:29 [id number] [facility], [facility] [place] [address] 12/15/2002 13:14:38 12/15/2002 14:13:41 [id number] [facility], [facility] [place] [address] 01/13/2003 13:01:11 01/14/2003 08:16:10 [id number] [facility], [facility] [place] [address] 04/15/2003 11:03:18 04/19/2003 08:06:00 [id number] [facility], [facility] [place] [address] 08/21/2006 10:49:44 08/22/2006 07:41:23 [id number] Cliff Oneal MD [facility], [facility] [place] [address] 12/26/2015 07:34:23 12/26/2015 14:02:54 [id number] Kristine Hutchinson RN [facility], [facility] [place] [address] 03/17/2019 08:57:39 03/17/2019 12:20:24 [id number] Adeola Prather RN [facility], [facility] [place] [address] 05/17/2021 06:59:26 05/17/2021 12:37:30 Health Concerns Section Related Observation LastModified by Organization Detai ls LastModified Time None Recorded Concern Status LastModified by Organization Details LastModified Time None Recorded Advance Directives Directive None Recorded Payers Encounter Date Sequence Insurance Name Policy Number Policy Mortensen Covered Member ID Mortensen Member ID Guarantor Name 04/15/2003 1 [facility] [id number] Toan Arndtil [id number] Toan Borrego Bebeto 08/21/2006 1 [facility] [id number] Toan Borrego Bebeto [id number] Toan Borrego Bebeto 12/26/2015 1 [place] [employer] Toan Borrego Bebeto [id number] Toan Borrego Bebeto 12/26/2015 2 [employer] - [place] - MEDICARE EXTENSION (INDEMNITY) [id number] Toan F O'Nolan [id number] Toan Borrego Bebeto 03/17/2019 1 [place] [employer] Toan Arndtil [id number] Toan Borrego Bebeto 03/17/2019 2 [employer] - MEDICARE EXTENSION (INDEMNITY) [id number] Toan Elmo O'Nolan [id number] Toan Borrego Bebeto 05/17/2021 1 [place] [employer] Toan Borrego Bebeto [id number] Toan Borrego Bebeto 05/17/2021 2 [employer] - MEDICARE EXTENSION (INDEMNITY) [id number] Toan Elmo O'Nolan [id number] Toan Elmo Bebeto OBGyn Episode No OBEpisode recorded.
[2024-04-03 16:26] VITALS: BP 168/65; PULSE 73; RESP 20; TEMP 37; O2SAT 98
== END 2024-04-03 16:27 | disposition home or self-care (01) ==
PROVIDERS: Emergency Provider Emergency Medicine
DX: M79.604 Pain in right leg (principal); E78.5 Hyperlipidemia, unspecified; Z86.718 Personal history of other venous thrombosis and embolism; Z79.01 Long term (current) use of anticoagulants
CPT/HCPCS: 93971; 99282; 99284

== ENCOUNTER → 2024-04-03 13:37 | Outpatient (BNV) | payer MEDICARE, OTHER, SELFPAY | PROVIDERS: Visit Provider Radiology Diagnostic Radiology | DX: R22.41 Localized swelling, mass and lump, right lower limb (principal) | CPT/HCPCS: 93971 ==

== ENCOUNTER 2024-10-26 12:14 | Outpatient (AMB) | payer MEDICARE, OTHER, SELFPAY ==
[2024-10-26 12:39] VITALS: BP 122/78; PULSE 78; BMI 38.3
--- NOTE | 2024-10-26 12:39 | MHC.OFFVIS ---
Vital Signs 10/26/24 12:39 Height 5 ft 2 in Weight 209 lb 7.026 oz BMI 38.3 BP 122/78 Blood Pressure Location Lt brachial Position Sitting Pulse 78 Pulse Source Monitor Intake Visit Reasons: f/up r/s by pt Allergies No Known Allergies Allergy (Verified 04/03/24 13:36) Medication List - Last Reconciled 10/26/24 by Marcelo Mathews MD No Known Home Meds HPI Comments Details: Toan returns for follow-up. Last year she was seen in consultation regarding palpitations. She had a DVT and after that was put on Eliquis. Then started noticing palpitations and had a workup in that regard. Otherwise, she has got no known coronary disease myocardial infarction or cardiomyopathy or in fact any other major cardiac concerns. She is obese. She has had elevated blood pressures at different times but not diagnosed with hypertension in the past. Also has dyslipidemia but does not want any medications for that. Overall, she generally feels okay without any clear cardiac symptoms. She would like her cardiac status checked out as the brother apparently had a myocardial infarction in his 50s. But he was also a smoker. [facility] Medical History (Updated 10/26/24 @ 14:27 by Marcelo Mathews MD) Nonalcoholic fatty liver Obstructive sleep apnea Morbid obesity Nephrolithiasis Irritable bowel syndrome Hyperlipidemia Gastroesophageal reflux disease with esophagitis Adenomatous polyp of colon Gastric ulcer Family History Brother Heart attack Social History Alcohol intake: never Patient Tobacco Use Status: Never used Tobacco Review of Systems Const Denies weakness ENT Denies dizziness Card Denies chest pain, Denies chest pain with activity, Denies syncope, Denies rapid heart rate, Denies pedal edema, Denies edema, Denies leg edema, Denies lightheadedness, Denies palpitations, Denies dyspnea, Denies dyspnea on exertion and Denies orthopnea Resp Denies cough, Denies dyspnea and Denies dyspnea on exertion GI Denies hematochezia and Denies change in stool character Musc Denies abnormal gait, Denies muscle cramps, Denies muscle weakness, Denies numbness, Denies radiating pain into limb and Denies tingling Neuro Denies abnormal gait, Denies dizziness, Denies syncope, Denies numbness, Denies tingling and Denies weakness Endo Denies palpitations Physical Exam Vital Signs: Last Vital Signs Pulse 78 10/26/24 12:39 BP 122/78 10/26/24 12:39 BMI result Body Mass Index 38.3 Const General: comfortable and no acute distress Orientation/consciousness: patient oriented x3 HEENT Other: Unremarkable Head: Yes normal to inspection Neck Neck: Yes normal visual inspection Chest Chest palpation & inspection: normal inspection of the chest Resp Auscultation: clear to auscultation bilaterally Cardio Palpation: normal PMI Heart sounds: S1 normal heart sound present, S2 normal heart sound present, no gallops, no murmurs and no rubs GI Palpation (GI): Soft to palpation Back/Spine/Pelvis Other: unremarkable Skin General skin exam: no rashes or lesions noted Neuro General: patient oriented x3 Extrem General: Yes normal to inspection Psych Mental Status: mental status grossly normal Office Procedures EKG Details: Underlying rhythm is sinus at 78/Min; no ischemic changes; normal [place]; corrected QT slightly prolonged at 502 milliseconds. [id number], Complete Assessment & Plan Assessment & Plan (1) Elevated blood pressure reading without diagnosis of hypertension: Code(s): R03.0 - Elevated blood-pressure reading, without diagnosis of hypertension Category: Medical (2) Hyperlipidemia: Code(s): E78.5 - Hyperlipidemia, unspecified Category: Medical (3) Family history of coronary artery disease: Code(s): Z82.49 - Family history of ischemic heart disease and other diseases of the circulatory system Category: Medical (4) Prolonged QT interval: Code(s): R94.31 - Abnormal electrocardiogram [ECG] [EKG] Category: Medical Plan With regard to the blood pressure, it has been as much as 189/82 mm Hg. Today however it is completely normal at 122/78 mm Hg. Not clear if she has labile hypertension. Advised her to do home monitoring for few weeks and then we can go over the diary. May need blood pressure medications depending on that. With regard to the lipids, patient states these are the lipids- Total 228; HDL 47; LDL 120; Tri 307. Her triglycerides are quite high most likely related to her weight. Main strategy would be to lose weight. We discussed about statins but she states she wants nothing to do with medications. With regard to her weight/BMI, must lose weight which will be of great benefit overall. Considering risk factors, age, family history patient inquired about the need for a stress test. Reasonable to do an ETT. Finally with regard to the EKG, corrected QT appears slightly prolonged but was within range last time. She does not not seem to be on any prescription medications. We can follow up with another EKG due course. Discussed with significant other. Prior testing- Echocardiogram with hyperdynamic LVEF. Mild right ventricle hypertrophy. Mild aortic/mitral calcification. Holter with underlying sinus rhythm with an average rate of 79/Min. Rare supraventricular and ventricular ectopy. Total time spent including review of data, counseling, documentation, coordination of care-31 minutes. Orders: Orders CA stress test Today R07.2 - Precordial pain Coding Level of Care Code Est Pt Level 4 (66294) Complex EM visit Add On G2211 Diagnoses Elevated blood pressure reading without diagnosis of hypertension R03.0 Hyperlipidemia E78.5 Family history of coronary artery disease Z82.49 Prolonged QT interval R94.31 CPT Codes EKG - CPT: 14611-Onrwwxsbuwcfdizce, Complete ([id number])
--- OUTSIDE RECORDS SUMMARY | 2024-10-26 16:20 | XMS_ITS | Clinical Summary ---
Author Organization [facility] Address [address] [facility] [place] [address] Phone Care Team Providers Care Child Care Counselor Name Role Phone EspinozaTracie DO Primary Care Provider [phone] Tracie Sibley DO Unavailable [phone] Medications betamethasone dipropionate 0.05 % lotion APPLY TO THE AFFECTED AREAS ON THE SCALP 1-2 TIMES WEEKLY FOR MAINTENANCE 4 Active Active Problems Problem Noted Date Diagnosed Date Ora's disease, unspecified site 04/07/2024 Assessment & Plan (04/07/2024 12:04 PM EST): NO acute issue Monitor. Tongue lesion 11/27/2023 Assessment & Plan (11/27/2023 10:28 AM EDT): I see no change from previous (photo is from previous). It is possible there is a little candidiasis- she has brushed her tongue prior to appt. I have given nystatin swish and spit. I have referred to oral surgery for further evaluation. History of DVT (deep vein thrombosis) 07/03/2023 Overview (11/27/2023): Provoked, eliquis 3 mo. Dc early August 202311/2023 - resolved Assessment & Plan (07/03/2023 11:35 AM EDT): She is doing quite well. Continue the eliquis for the full 3 mo then dc/continue as per cards NAFL (nonalcoholic fatty liver) 04/26/2020 Obstructive sleep apnea syndrome 03/19/2019 Overview (03/19/2019): Diagnosed 10/29, starting Cpap soon. Assessment & Plan (10/26/2019 1:22 PM EDT): On CPAP since May 2019. Tolerating it well. Elevated ferritin 06/25/2017 Overview (11/21/2022): Chronic Iron and hepatic studies otherwise normal Will monitor annually or sooner if sx's develop Assessment & Plan (11/27/2023 9:02 AM EDT): Etiology unclear. I recommended consult with heme last year and again this year but she is not amenable. I offered repeat testing but she declines at this time. Assessment & Plan (11/21/2022 8:52 AM EDT): I did give a referral to Heme if she would like to see them. Otherwise monitor Assessment & Plan (06/25/2017 10:08 AM EDT): She has had normal transferrin and iron levels in the past. Negative genetic test for hemochromatosis. Will repeat test today. History of gastric ulcer 12/18/2016 Overview (11/21/2022): GI following. Assessment & Plan (11/21/2022 8:54 AM EDT): No acute issue Adenomatous polyp of colon 12/18/2016 Overview (11/21/2022): GI following Family history of cardiovascular disease 017 Gastroesophageal reflux disease with esophagitis 12/18/2016 Hyperlipidemia 12/18/2016 Assessment & Plan (11/27/2023 10:29 AM EDT): MOst recent Lipid panel shows only elevation of the TGL, likely secondary to the BS elevation. Diet and ex, consider Fish-oil Irritable bowel syndrome 12/18/2016 Overview (11/21/2022): Followed by GI Assessment & Plan (11/21/2022 8:42 AM EDT): Daily fiber supplement No acute issue Nephrolithiasis 12/18/2016 Overview (04/17/2023): Followed by Dr [facility] Cystoscopy 2022 Obesity, morbid Overview (11/21/2022): Lifestyle modification Assessment & Plan (11/27/2023 10:28 AM EDT): Lifestyle modification. Assessment & Plan (10/26/2019 1:23 PM EDT): She lost 30lb this year on [employer]. She is congratulated and will keep working on it. Resolved Problems Problem Noted Date Diagnosed Date Resolved Date History of COVID-19 11/27/2023 01/22/20 24 Overview (11/27/2023): 2021 2023 Thrush 11/27/2022 11/27/2023 Assessment & Plan (11/27/2022 9:38 AM EDT): Toan presents for an abnormality of the tongue-there are fissures and white patches-I suspect a thrush infection. I wrote for nystatin swish and swallow-to be taken as directed. Guidance given to call if this does not improve or if this gets worse. Follow-up with PCP as needed. She understands and agrees. Post-viral reactive airway disease 06/18/2017 06/25/2017 Assessment & Plan (06/18/2017 8:21 AM EDT): Toan was diagnosed with post reactive airway disease and she was advised to use pro-air as needed, and to take the prednisone as directed. She was advised to call if there is any other issues. She understands and agrees. Vertigo 12/18/2016 11/27/2023 Immunizations Immunization Administration Dates Next Due COVID-19 (Pre-12/02) Pfizer Vaccine, mRNA, PF 04/16/2020,03/26/2020 Influenza High-Dose Quadriva lent Preservative Free IM 11/21/2022,11/14/2021,11/01/2020 Influenza High-Dose Trivalen t Preservative Free IM 11/11/2023,12/15/2018,12/15/2017,12/19,12/21/2015,03/20/2015 Influenza Quadrivalent Adjuv anted Preservative Free IM 11/16/2019 Influenza Quadrivalent w/ Pr eservative IM 03/16/2014 Influenza trivalent preserva tive free intradermal 02/01/2013 Pneumococcal conjugate PCV13 03/16/2014 Pneumococcal polysaccharide PPSV23 03/20/2015 Td (adult) 5 Lf Tetanus Toxo id, PF, Adsorbed 09/04/2001 Td (adult),2 Lf Tetanus Toxo id, PF, Adsorbed 11/01/2020 Tdap 01/22/2011 Zoster live 01/18/2009 Zoster recombinant 06/20/2018,04/15/2018 Family History Medical History Relation Comments Coronary artery disease Brother CV disease Father Coronary artery disease Father Relation Status Comments Brother (Age 58) Father Social History Tobacco Use Types Packs/Day Years Used Date Smoking Tobacco: Never Smokeless Tobacco: Never Tobacco Cessation:Counseling Given: Not Answered Child or Family Care Answer Date Record ed Do you have problems with on e of the following making it difficult for you to work, study, or receive health care? No 11/27/2023 Education Answer Date Recorded Are you interested in more education? Not on chacorta e 06/07/2022 Are you concerned about learning? Not on file 06/07/2022 No 06/07/2022 No 06/07/2022 Food Answer Date Recorded Within the past 6 months we worried whether our food would run out before we got money to buy more. Never True 11/27/2023 Within the past 6 months the food we bought just didn't last and we didn't have enough money to get more. Never True Residential Stability Answer Date Recor ded What is your housing situation today? I have saulo obrien 11/27/2023 How many times have you move d in the past 12 months? Zero (I did not move) 11/27/2023 Paying for Meds Answer Date Recorded Do you have trouble paying for medicines? No 11/27/2023 Paying Utility Bills Answer Date Record ed Do you have trouble paying your heating or elect ricity bill? No 11/27/2023 Transportation Answer Date Recorded Has the lack of transportati on kept you from medical appointments or from getting medications? No 11/27/2023 Digital Access Answer Date Recorded Yes 11/27/2023 Yes 11/27/2023 Do you have reliable internet access at home? No 11/27/2023 Do you have a device (e.g., phone, tablet, computer) with a working camera? Yes 11/27/2023 Intimate Partner Violence Answer Date R ecorded Denied Basic Needs Not on file 11/27/2023 In the past 12 months have y ou been in a relationship with a person who hurts, threatens, or tries to control you? No 11/27/2023 Worried food would run out Not on file 11/26 In the past 12 months have y ou been in a relationship with a person who hurts, threatens, or tries to control you? No 11/27/2023 Comments No Sex and Gender Information Value Date Recorded Sex Assigned at Female 06/09/2023 9:35 AM EDT Legal Sex Female 10:04 PM EDT Gender Identity Female 06/09/2023 9:35 AM EDT Sexual Orientation Straight 06/09/2023 9: 35 AM EDT Last Filed Vital Signs Vital Sign Reading Time Taken Comments Blood Pressure 122/60 07/15/2024 4:02 PM EDT Pulse 82 07/15/2024 4:02 PM EDT Temperature 36.7 C (98 F) 07/15/2024 4:02 PM EDT Respiratory Rate - - Oxygen Saturation 98% 07/15/2024 4:02 PM EDT Inhaled Oxygen Concentration - - Weight 97.9 kg (215 lb 12.8 oz) 07/15/2024 4:02 PM EDT Height 157.5 cm (5' 2.01 ) 04/07/2024 1 1:33 AM EST Body Mass Index 39.46 04/07/2024 11:33 AM EST Plan of Treatment Upcoming Encounters Date Type Department Care Team (Late st Contact Info) Description 07/12/2024 Procedure Pass [address] [place] [address] 01/28/2025 1:45 PM EST Appointment [address] [place] [address] Tracie Sibley, DO [address] [facility], [address] [place] [address] Health Maintenance Due Date Last Done Comments COLOGUARD 1993 FIT TEST 1993 FOBT 1993 SIGMOIDOSCOPY 1993 VIRTUAL COLONOSCOPY 1993 RSV VACCINE (1 - 1-dose 75+ series) 04/21/2023 MAMMOGRAM 09/09/2024 09/10/2023, 08/10, 08/24/2021, Additional history exists INFLUENZA VACCINE (#1) 2024 , 11/21/2022, 11/21/2022, Additional history exists COVID-19 VACCINE ( season) 2024 11/25/2022, 11/21/2021, 11/30/2020, Additional history exists DEPRESSION SCREENING 11/26/2024 11/27/2023 COLONOSCOPY 05/17/2026 05/17/2021, 12/26/2015 COLORECTAL CANCER SCREENING 05/17/2026 LIPID PANEL 11/16/2028 11/17/2023, 05/2022, 11/13/2022, Additional history exists Adult Td,Tdap Booster 11/01/2030 11/01/2020 , 01/22/2011, 09/04/2001 OSTEOPOROSIS SCREENING INITIAL (ONE-TIME) Completed 02/08/2010 HEPATITIS C SCREENING Completed 02/02/2013 PNEUMOCOCCAL VACCINES (50+ years) Completed 03/20/2015, 03/16/2014 ZOSTER VACCINES Completed 06/20/2018, 030 07/2018, 01/18/2009 SMOKING STATUS SCREENING (Once After 26 Yrs) Completed 01/22/2024 HEPATITIS A VACCINES Aged Out No long er eligible based on patient's age to complete this topic HIB VACCINES Aged Out No longer eligi ble based on patient's age to complete this topic MENINGOCOCCAL VACCINES (ACWY) Aged Out No longer eligible based on patient's age to complete this topic MENINGOCOCCAL VACCINES (B) Aged Out N o longer eligible based on patient's age to complete this topic Medical Devices Not on file Procedures Procedure Name Priority Date/Time Associated Diagnosis Comments LIPID PANEL Routine 11/17/2023 9:20 AM EDT Mixed hyperlipidemia BI MAMMOGRAM SCREENING WITH TOMOSYNTHESIS WITH CAD (BILATERAL) Routine 09/10/2023 1:43 PM EDT Breast screening HM COLONOSCOPY FOR RESULT ENTRY ONLY Routine 05/17/2021 OUTSIDE HEPATITIS C VIRUS SCREENING Routine 02/02/2013 OUTSIDE BONE DENSITY SCREENING Routine 02/08/2010 from Last 3 Months or Most Recently Relevant to Health Maintenance Results * (ABNORMAL) Lipid panel (11/17/2023 9:20 AM EDT) HDL 47 mg/dL [facility] Comment: Interpretation <40 mg/dL: Low HDL cholesterol (major risk factor for CHD) Greater than or equal to 60 mg/dL: High HDL cholesterol ( negative risk factor for CHD) HDL - cholesterol is affected by a number of factors, e.g. smoking, excerise, hormones, sex and age. CHOLESTEROL 228 0 - 240 mg/dL [facility] TRIGLYCERIDES 307(H) 30 - 160 mg/dL [facility] LDL 120 50 - 129 mg/dL [facility] Comment: LDL levels in terms of risk for coronary heart disease: <100 mg/dL: Optimal 100-129 mg/dL: Near or above optimal 130-159 mg/dL: Borderline high 160-189 mg/dL: High >190 mg/dL: Very High CARDIAC RISK RATIO 4.9(H) 3.3 - 4.4 C [facility] Blood 11/17/2023 9:20 AM EDT 11/17/2023 9:27 AM EDT Tracie Sibley DO LAB BLOOD ORDERABLES Final Re sult [address] [address] * BI MAMMOGRAM SCREENING WITH TOMOSYNTHESIS WITH CAD (BILATERAL) (09/10/2023 1:43 PM EDT) Anatomical Region Laterality Modality Breast Left, Breast Right, Breast Bilateral Bila teral Mammography 09/11/2023 8:33 AM EDT Impressions 09/11/2023 8:38 AM EDT No mammographic evidence of malignancy in either breast. Annual screening mammography is recommended. BI-RADS 1 NEGATIVE The patient will be notified of the results and recommendations. Narrative 09/11/2023 8:38 AM EDT BI MAMMOGRAM SCREENING WITH TOMOSYNTHESIS WITH CAD (BILATERAL) Additional patient information: Screening. COMPARISON: Comparison is made with relevant prior imaging. Breast composition: There are scattered areas of fibroglandular density. FINDINGS: No abnormal masses, suspicious calcifications, or other significant findings are identified mammographically in either breast. Procedure Note Ricky Field MD - 09/11/2023 BI MAMMOGRAM SCREENING WITH TOMOSYNTHESIS WITH CAD (BILATERAL) Additional patient information: Screening. COMPARISON: Comparison is made with relevant prior imaging. Breast composition: There are scattered areas of fibroglandular density. FINDINGS: No abnormal masses, suspicious calcifications, or other significantfindings are identified mammographically in either breast. IMPRESSION: No mammographic evidence of malignancy in either breast. Annual screening mammography is recommended. BI-RADS 1 NEGATIVE The patient will be notified of the results and recommendations. us Tracie Sibley DO IMG MG EXAMS Final Result * COLONOSCOPY FOR RESULT ENTRY ONLY (05/17/2021) Historical Provider HEALTH MAINTENANCE Final Result * Outside Hepatitis C Virus Screening (02/02/2013) Hepatitis C Screening - External Neg us Historical Provider MD LAB BLOOD ORDERABLES Karolina l Result * OUTSIDE BONE DENSITY SCREENING (02/08/2010) BONE DENSITY SCREENING - EXTERNAL normal us Historical Provider HEALTH MAINTENANCE Final Result from Last 3 Months or Most Recently Relevant to Health Maintenance Insurance MEDICARE PART A & B Member Subscriber Plan / Payer (Ef fective 2013-Present) Name:Toan Tate Member ID:[id number] Relation to Subscriber:Self Name:Toan Tate Subscriber ID:[id number] Payer ID:[id number] Group ID:Not on file Type:Medicare Address: [facility] [employer] [facility] [address] [place] [phone] [facility] MEDICARE SUPPLEMENT MEDICARE PART A & B [facility] [employer] MEDICARE SUPPLEMENT MEDICARE PART A & B [facility] MEDICARE SUPPLEMENT MEDICARE PART A & B [employer] MEDICARE SUPPLEMENT MEDICARE PART A & B [facility] [employer] MEDICARE SUPPLEMENT MEDICARE PART A & B [employer] MEDICARE SUPPLEMENT MEDICARE PART A & B [employer] MEDICARE SUPPLEMENT MEDICARE PART A & B Member Subscriber Plan / Payer (Ef fective 2013-Present) Name:Toan Tate Member ID:[id number] Relation to Subscriber:Self Name:Toan Tate Subscriber ID:[id number] Payer ID:[id number] Group ID:Not on file Type:Medicare Address: [employer] [facility] [address] [facility] MEDICARE SUPPLEMENT MEDICARE PART A & B [employer] [facility] MEDIC[facility] SUPPLEMENT Care Teams Child Care Counselor Relationship Specialty Start Date End Date Tracie Sibley DO [address] [facility], [facility] [address] [place] [address] [email or web address] PCP - General Family Medicine 11/14/21 Tracie Sibley DO [address] [facility], [address] [place] [address] [email or web address] Insurance Assigned Provider 05/17/23 Additional Source Comments The information contained in this document represents components of the legal health record. It is not the complete legal health record.[facility]
--- OUTSIDE RECORDS SUMMARY | 2024-10-26 16:20 | XMS_ITS | Encounter Summary ---
Author Organization [facility] Address [address] [place] [address] Phone Care Team Providers Care Rehab Office Coordinator Name Role Phone Nika Hanna MD Primary Care Provider [phone] Nika Hanna MD Unavailable Tracie Sibley DO Primary Care Provider Tracie Sibley DO Unavailable Encounter Details Date Type Department Care Team (Late st Contact Info) Description 05/15/2017 Ancillary Orders [address] [address] Nika Hanna MD [address] [place] [address] [address] [place] [address] [email or web address] Breast screening Social History Tobacco Use Types Packs/Day Years Used Date Smoking Tobacco: Never Comments Unknown Sex and Gender Information Value Date Recorded Sex Assigned at Female 06/09/2023 9:35 AM EDT Legal Sex Female 10:04 PM EDT Gender Identity Female 06/09/2023 9:35 AM EDT Sexual Orientation Straight 06/09/2023 9: 35 AM EDT documented as of this encounter Plan of Treatment Upcoming Encounters Date Type Department Care Team (Late st Contact Info) Description 07/12/2024 Procedure Pass [facility] - [address] [place] [address] 01/28/2025 1:45 PM EST Appointment [address] [place] [address] Tracie Sibley, DO [address] [facility], [address] [place] [address] [email or web address] documented as of this encounter Results * BI MAMMOGRAM SCREENING WITH TOMOSYNTHESIS WITH CAD (BILATERAL) (06/18/2017 9:45 AM EDT) Anatomical Region Laterality Modality Breast Left, Breast Right, Breast Bilateral Bila teral Mammography 06/18/2017 12:2 8 PM EDT Impressions 06/18/2017 12:31 PM EDT No findings suspicious for malignancy are identified. In the absence of a worrisome palpable abnormality, annual screening mammography is recommended. BI-RADS CATEGORY: 1 - Negative. DENSITY: There are scattered fibroglandular densities. POS CDHMAMA Narrative 06/18/2017 12:31 PM EDT COMPARISON: 02/01/2011 through 03/11/2016 Bilateral 3-D tomosynthesis with 2-D reconstructions in the CC and MLO projection. Computer-aided detection system also utilized. No new mass, asymmetry, architectural distortion or suspicious calcifications have become apparent on either side. Procedure Note Kaiden Herrera MD - 06/18/2017 COMPARISON: 02/01/2011 through 03/11/2016 Bilateral 3-D tomosynthesis with 2-D reconstructions in the CC and MLOprojection. Computer-aided detection system also utilized. No new mass, asymmetry, architectural distortion or suspiciouscalcifications have become apparent on either side. IMPRESSION: No findings suspicious for malignancy are identified. In the absence of aworrisome palpable abnormality, annual screening mammography isrecommended. BI-RADS CATEGORY: 1 - Negative. DENSITY: There are scattered fibroglandular densities. POS CDHMAMA Nika Hanna MD IMG MG EXAMS Final Result documented in this encounter Visit Diagnoses Diagnosis Breast screening Breast screening, unspecified Breast screening Breast screening, unspecified documented in this encounter Additional Health Concerns Infection Onset Date Last Indicated Resolved Time CoV-Presumed 01/03/2022 01/03/2022 01/24/2022 1:23 AM EST documented as of this encounter Care Teams Rehab Office Coordinator Relationship Specialty Start Date End Date Nika Hanna MD [address] [facility] [address] [place] [address] PCP - General 11/28/16 11/13/21 Tracie Sibley DO [address] [place] [address] [place] [address] PCP - General Family Medicine 11/14/21 Nika Hanna MD [address] [place] [address] [place] [address] Insurance Assigned Provider 01/11/1705/18/22 Tracie Sibley DO [address] [place] [address] [place] [address] Insurance Assigned Provider 05/17/23 documented as of this encounter Additional Source Comments The information contained in this document represents components of the legal health record. It is not the complete legal health record.[facility]
--- OUTSIDE RECORDS SUMMARY | 2024-10-26 16:20 | XMS_ITS | Encounter Summary ---
Author Organization [facility] Address [address] [place] [address] Phone Care Team Providers Care Assessment Director Name Role Phone Nika Hanna MD Primary Care Provider [phone] Nika Hanna MD Unavailable [phone] Tracie Sibley DO Primary Care Provider [phone] Tracie Sibley DO Unavailable [phone] Encounter Details Date Type Department Care Team (Late st Contact Info) Description 06/04/2021 Procedure Pass [facility] [address] [place] [address] Social History Tobacco Use Types Packs/Day Years Used Date Smoking Tobacco: Never Smokeless Tobacco: Never Child or Family Care Answer Date Record ed Do you have problems with on e of the following making it difficult for you to work, study, or receive health care? No 04/26/2020 Education Answer Date Recorded Are you interested in help w ith more adult education (for example, completing high school, GED, job training, learning the German language, technical skills, or developing parenting skills)? No 04/26/2020 Food Answer Date Recorded Within the past 6 months we worried whether our food would run out before we got money to buy more. Never True 04/26/2020 Within the past 6 months the food we bought just didn't last and we didn't have enough money to get more. Never True Paying for Meds Answer Date Recorded Do you have trouble paying for medicines? No 04/26/2020 Paying Utility Bills Answer Date Record ed Do you have trouble paying your heating or elect ricity bill? No 04/26/2020 Transportation Answer Date Recorded Has the lack of transportati on kept you from medical appointments or from getting medications? No 04/26/2020 Comments No Sex and Gender Information Value Date Recorded Sex Assigned at Female 06/09/2023 9:35 AM EDT Legal Sex Female 10:04 PM EDT Gender Identity Female 06/09/2023 9:35 AM EDT Sexual Orientation Straight 06/09/2023 9: 35 AM EDT documented as of this encounter Plan of Treatment Upcoming Encounters Date Type Department Care Team (Late st Contact Info) Description 07/12/2024 Procedure Pass [address] [place] [address] 01/28/2025 1:45 PM EST Appointment [address] [place] [address] Tracie Sibley DO [address] [facility] [address] [place] [address] [email or web address] documented as of this encounter Visit Diagnoses Not on filedocumented in this encounter Additional Health Concerns Infection Onset Date Last Indicated Resolved Time CoV-Presumed 01/03/2022 01/03/2022 01/24/2022 1:23 AM EST Assessment Noted Time PHQ-2 Depression Total Score: 1 11/02/19 21 9:04 AM EDT documented as of this encounter Care Teams Assessment Director Relationship Specialty Start Date End Date Nika Hanna MD [address] [facility] [address] [place] [address] [email or web address] PCP - General 11/28/16 11/13/21 Tracie Sibley DO [address] [facility] 7 [place] [address] [email or web address] PCP - General Family Medicine 11/14/21 Nika Hanna MD [address] [place] [address], [address] [place] [address] [email or web address] Insurance Assigned Provider 01/11/1705/18/22 Tracie Sibley DO [address] [facility], [facility] [address] [place] [address] [email or web address] Insurance Assigned Provider 05/17/23 documented as of this encounter Additional Source Comments The information contained in this document represents components of the legal health record. It is not the complete legal health record.[facility]
--- OUTSIDE RECORDS SUMMARY | 2024-10-26 16:20 | XMS_ITS | Encounter Summary ---
Author Organization [facility] Address [address] [place] [address] Phone Care Team Providers Care Offshore Wind Operations Manager Name Role Phone Nika Hanna MD Primary Care Provider [phone] Nika Hanna MD Unavailable Tracie Sibley DO Primary Care Provider [phone] Tracie Sibley DO Unavailable [phone] Encounter Details Date Type Department Care Team (Late st Contact Info) Description 07/11/2020 Ancillary Orders [address] [address] Nika Hanna MD [address] [place] [address] [address] [place] [address] [email or web address] Breast screening Social History Tobacco Use Types [...] high school, GED, job training, learning the [place]and[place] language, technical skills, or developing parenting skills)? [...] st Contact Info) Description 07/12/2024 Procedure Pass [address] [place] [address] 01/28/2025 1:45 PM EST Appointment [address] [place] [address] Tracie Sibley, DO 234 [facility], [address] [place] [address] documented as of this encounter Results * BI MAMMOGRAM SCREENING WITH TOMOSYNTHESIS WITH CAD (BILATERAL) (08/23/2020 8:53 AM EDT) Anatomical Region Laterality Modality Breast Left, Breast Right, Breast Bilateral Bila teral Mammography 08/23/2020 10:0 6 AM EDT Impressions 08/23/2020 10:19 AM EDT BILATERAL BREASTS: Negative, no evidence of malignancy. Normal interval follow- up is recommended in 12 months. Bi-RADS: BI-RADS CATEGORY: 1 - Negative. DENSITY: There are scattered fibroglandular densities. Narrative 08/23/2020 10:19 AM EDT STUDY: Bilateral screening mammography with tomosynthesis and CAD TECHNIQUE: Bilateral full-field digital screening mammography is obtained and read in conjunction with computer-aided detection. Tomosynthesis as well as 2-D C view imaging were obtained. COMPARISON: Comparison made to multiple prior, most recent August 23, 2019, and most remote February 07, 2014. BREAST COMPOSITION: There are scattered areas of fibroglandular density BILATERAL BREASTS: No significant masses, suspicious calcifications or other abnormalities are seen. Procedure Note Alfa Bass MD - 08/23/2020 STUDY: Bilateral screening mammography with tomosynthesis and CAD TECHNIQUE: Bilateral full-field digital screening mammography is obtainedand read in conjunction with computer-aided detection. Tomosynthesis aswell as 2-D C view imaging were obtained. COMPARISON: Comparison made to multiple prior, most recent August 23, 2019,and most remote February 07, 2014. BREAST COMPOSITION: There are scattered areas of fibroglandulardensity BILATERAL BREASTS: No significant masses, suspicious calcifications orother abnormalities are seen. IMPRESSION: BILATERAL BREASTS: Negative, no evidence of malignancy. Normal intervalfollow-up is recommended in 12 months. Bi-RADS: BI-RADS CATEGORY: 1 - Negative. DENSITY: There are scattered fibroglandular densities. Nika Hanna MD IMG MG EXAMS Final Result documented in this encounter Visit Diagnoses Diagnosis Breast screening Breast screening, unspecified Breast screening Breast screening, unspecified documented in this encounter Additional Health Concerns Infection Onset Date Last Indicated Resolved Time CoV-Presumed 01/03/2022 01/03/2022 01/24/2022 1:23 AM EST Assessment Noted Time PHQ-2 Depression Total Score: 1 06/26/19 18 9:06 AM EDT documented as of this encounter Care Teams Offshore Wind Operations Manager Relationship Specialty Start Date End Date Nika Hanna MD [address] [place] [address], [address] [place] [address] PCP - General 11/28/16 11/13/21 Tracie Sibley DO [address] [place] [address], [address] [place] [address] [email or web address] PCP - General Family Medicine 11/14/21 Nika Hanna MD [address] [place] [address], [address] [place] [address] [email or web address] Insurance Assigned Provider 01/11/1705/18/22 Tracie Sibley DO [address] [place] [address], [address] [place] [address] Insurance Assigned Provider 05/17/23 documented as of this encounter Additional Source Comments The information contained in this document represents components of the legal health record. It is not the complete legal health record.[facility]
--- OUTSIDE RECORDS SUMMARY | 2024-10-26 16:20 | XMS_ITS | Clinical Summary ---
Author Organization [address] [facility] Address [address] [place] [address] Phone Care Team Providers Care Radio Survey Worker Name Role Phone Nika Hanna MD Primary Care Provider [phone] Allergies No known active allergies Medications multivitamin tablet Take 1 tablet by mouth 1 (one) time each day. 04/22/2011 Active Active Problems Problem Noted Date Diagnosed Date Obesity, morbid (CMS/HCC V24, CMS/HCC V28) 12/30 Overview (12/31/2023): Lifestyle modification History of COVID-19 11/27/2023 Overview (12/31/2023): 2021 2023 Tongue lesion 11/27/2023 NAFL (nonalcoholic fatty liver) 04/26/2020 Chronic insomnia 02/09/2019 Hypersomnolence 02/09/2019 Nocturnal hypoxemia 02/09/2019 PLMD (periodic limb movement disorder) 9 Obstructive sleep apnea syndrome 11/16/2018 Overview (12/31/2023): moderate overall AHI 16; severe in REM AHI 38 [facility] Polysomnogram: Date 11/08/2018; Wt 207#; BMI 37; SE 66%; SM 70%; REM 26%; RDI 24 (AHI 16), REM (RDI 38 - AHI 38), Central apneas 0; Obstructive apneas 0; Mixed apneas 0; hypopneas 90; RERAs 46; average oxygen saturation 91% (lowest 72% - with saturations <88% for 5% or more of study); PLMs 21. [facility] Polysomnogram treatment study. Date 03/02/2019. Wt 201#; BMI 36; SE 77 % SM 88 %; spent 21 % of the study in REM. On CPAP @ 6; RDI 0.6 (AHI 0.6), Central apneas 1; Obstructive apneas 1; Mixed apneas 0; hypopneas 1; RERAs 0; and, average oxygen saturation was 93%. For the entire study, PLMs ~0. Prestudy ESS 5; 0/4 RLS symptoms. - Obstructive Sleep Apnea - moderate overall and severe in REM; mostly hypopneas; with sleep related hypoventilation by 2019 polysomnogram. - CPAP @ 6 corrective. Diagnosed 10/29, starting Cpap soon. Elevated ferritin 06/25/2017 Overview (12/31/2023): Chronic Iron and hepatic studies otherwise normal Will monitor annually or sooner if sx's develop Adenomatous polyp of colon 12/18/2016 Overview (12/31/2023): GI following Gastroesophageal reflux disease with esophagitis 12/18/2016 Hyperlipidemia 12/18/2016 Irritable bowel syndrome 12/18/2016 Overview (12/31/2023): Followed by GI Nephrolithiasis 12/18/2016 Overview (12/31/2023): Followed by Dr Gibson - [place] Cystoscopy 2022 Immunizations Name Administration Dates Next Due Influenza Quadravalent, 0.5m l (Fluad) 65yo and older 11/16/2019 Influenza Quadravalent, 0.5m l (Fluzone High-dose) 65yo and older 11/21/2022,11/14/2021,11/01/2020 Influenza Quadrivalent, with preservative (Fluzone; Afluria) 6mo and older 03/16/2014 Influenza trivalent, 0.5mL ( Fluzone High-dose) 65yo and older 11/11/2023,12/15/2018,12/15/2017,12/19,12/21/2015,03/20/2015 Pfizer SARS-CoV-2 COVID-19, mRNA, LNP-S, preservative free 04/16/2020,03/26/2020 Pneumococcal conjugate 13 va lent (Prevnar 13, PCV13) 2mo and older 03/16/2014 Pneumococcal polysaccharide 23 valent (Pneumovax 23) 2yo and older 03/20/2015 Td Tetanus diptheria (Tdvax) 7yo and older 11/01/2020 Td Tetanus diptheria, preser vative free (Tenivac) 7yo and older 09/04/2001 Tdap Tetanus diptheria acell ular pertussis (Boostrix; Adacel) 7yo and older 01/22/2011 Zoster Live 01/18/2009 Zoster recombinant (Shingrix ) 19yo and older 06/20/2018,04/12/2018 influenza Split Preservative Free ID 02/01/2013 Surgical History Surgery Date Site/Laterality Comments OTHER SURGICAL HISTORY PROCEDURE: DENIES PREVIOUS SURGERY; COMMENT: Patient denies any surgeries Medical History Medical History Date Comments Insomnia DX:Insomnia Hypersomnolence DX:Hypersomnolen ce Social History Tobacco Use Types Packs/Day Years Used Date Smoking Tobacco: Never Smokeless Tobacco: Never Tobacco Cessation:Counseling Given: Not Answered Alcohol Use Standard Drinks/Week Comments No 0 (1 standard drink = 0.6 oz pur e alcohol) Comments Unknown Sex and Gender Information Value Date Recorded Sex Assigned at Not on file Legal Sex Female 2:10 AM EST Gender Identity Not on file Sexual Orientation Not on file Obstetrics History Last Filed Vital Signs Vital Sign Reading Time Taken Comments Blood Pressure 126/61 12/31/2023 8:35 AM EST Pulse 56 12/31/2023 8:35 AM EST Temperature 36.3 C (97.4 F) 12/31/2023 8:35 AM EST Respiratory Rate 20 12/31/2023 8:35 AM EST Oxygen Saturation 97% 12/31/2023 8:35 AM EST Inhaled Oxygen Concentration - - Weight 97.6 kg (215 lb 3.2 oz) 12/31/2023 8:35 A M EST Height 157.5 cm (5' 2 ) 12/31/2023 8:35 AM EST Body Mass Index 39.36 12/31/2023 8:35 AM EST Plan of Treatment Upcoming Encounters Date Type Department Care Team (Late st Contact Info) Description 12/30/2024 8:30 AM EST Office Visit Pulmonolgy - [place] [address] [facility] [address] [place] [id number] Barbara Quintana MD [address] [place] [id number] Health Maintenance Due Date Last Done Comments Hepatitis A Vaccines (1 of 2 - Risk 2-dose series) 04/21/1969 Hepatitis B Vaccines (1 of 3 - Risk 3-dose series) 2008 Falls Risk Assessment 01/19/2022 Hepatitis C Screening 01/19/2022 Medicare Annual Wellness Visit 01/19/2022 Osteoporosis Screening (Bone Density Screening) 01/19/2022 Social Influencers of Health Screening 01/19/2022 RSV Immunization Adult Patients (1 - 1-dose 75+ series) 04/21/2023 Depression Screening 02/11/2024 COVID-19 Vaccine ( season) 2024 11/25/2022, 11/21/2021, 11/30/2020, Additional history exists Influenza Vaccine (#1) 2024 , 11/21/2022, 11/14/2021, Additional history exists Cholesterol Screening (Lipid Panel) 11/16/2028 11/17/2023 DTaP,Tdap,and Td Vaccines (4 - Td or Tdap) 11/01/2030 11/01/2020, 01/22/2011, 09/04/2001 Pneumococcal Vaccine: 50+ Years Completed 03/20/2015, 03/16/2014 Zoster Vaccines Completed 06/20/2018, 04/2018, 01/18/2009 Breast Cancer Screening Discontinued 09/10/2023 HIB Vaccines Aged Out No longer eligi ble based on patient's age to complete this topic HPV Vaccines Aged Out No longer eligi ble based on patient's age to complete this topic IPV Vaccines Aged Out No longer eligi ble based on patient's age to complete this topic MMR Vaccines Aged Out No longer eligi ble based on patient's age to complete this topic Meningococcal ACWY Vaccine Aged Out N o longer eligible based on patient's age to complete this topic Meningococcal B Vaccine Aged Out No l onger eligible based on patient's age to complete this topic RSV Immunization Patients Under 20 months Aged Out No longer eligible based on patient's age to complete this topic Varicella Vaccines Aged Out No longer eligible based on patient's age to complete this topic Insurance MEDICARE [facility] Care Teams Radio Survey Worker Relationship Specialty Start Date End Date Nika Hanna MD [address] [place] [address], [address] [place] [address] PCP - General 10/08/18
--- OUTSIDE RECORDS SUMMARY | 2024-10-26 16:20 | XMS_ITS | Encounter Summary ---
Author Organization [facility] Address [address] [place] [address] Phone Care Team Providers Care Emergency Room Physician Name Role Phone Tracie Sibley DO Primary Care Provider [phone] Tracie Sibley DO Unavailable [phone] Encounter Details Date Type Department Care Team (Late st Contact Info) Description 06/17/2022 Procedure Pass [facility] - [address] [place] [address] Social History Tobacco Use Types Packs/Day Years [...] st Contact Info) Description 07/12/2024 Procedure Pass [address] [place] [address] 01/28/2025 1:45 PM EST Appointment [address] [place] [address] Tracie Sibley DO 234 [facility] 7 [place] [address] documented as of this encounter Visit Diagnoses Not on filedocumented in this encounter Additional Health Concerns Assessment Noted Time PHQ-2 Depression Total Score: 0 11/15/19 22 7:56 AM EDT documented as of this encounter Care Teams Emergency Room Physician Relationship Specialty Start Date End Date Tracie Sibley DO [address] [facility] 7 [place] [address] PCP - General Family Medicine 11/14/21 Tracie Sibley DO [address] [facility] 7 [place] [address] Insurance Assigned Provider 05/17/23 documented as of this encounter Additional Source Comments The information contained in this document represents components of the legal health record. It is not the complete legal health record.[facility]
--- OUTSIDE RECORDS SUMMARY | 2024-10-26 16:20 | XMS_ITS | Encounter Summary ---
Author Organization [facility] Address [address] [place] [address] Phone Care Team Providers Care Die Cutter Apprentice Name Role Phone Nika Hanna MD Primary Care Provider [phone] Nika Hanna MD Unavailable Tracie Sibley DO Primary Care Provider [phone] Tracie Sibley DO Unavailable [phone] Encounter Details Date Type Department Care Team (Late st Contact Info) Description 07/11/2020 Procedure Pass [facility] - [address] [place] [address] Social History Tobacco Use Types Packs/Day Years [...] high school, GED, job training, learning the [place]ic language, technical skills, or developing parenting skills)? [...] st Contact Info) Description 07/12/2024 Procedure Pass [address] [place] [address] 01/28/2025 1:45 PM EST Appointment [address] [place] [address] Tracie Sibley DO 234 [facility] 7 [place] [address] documented as of this encounter Visit Diagnoses Not on filedocumented in this encounter Additional Health Concerns Infection Onset Date Last Indicated Resolved Time CoV-Presumed 01/03/2022 01/03/2022 01/24/2022 1:23 AM EST Assessment Noted Time PHQ-2 Depression Total Score: 1 06/26/19 18 9:06 AM EDT documented as of this encounter Care Teams Die Cutter Apprentice Relationship Specialty Start Date End Date Nika Hanna MD 234 [facility] 7 [place] [address] PCP - General 11/28/16 11/13/21 Tracie Sibley DO 234 [facility] 7 [place] [address] PCP - General Family Medicine 11/14/21 Nika Hanna MD [address] [place] [address], [address] [place] [address] [email or web address] Insurance Assigned Provider 01/11/1705/18/22 Tracie Sibley DO 234 [facility], [facility] 7 [place] [address] [email or web address] Insurance Assigned Provider 05/17/23 documented as of this encounter Additional Source Comments The information contained in this document represents components of the legal health record. It is not the complete legal health record.[facility]
--- OUTSIDE RECORDS SUMMARY | 2024-10-26 16:20 | XMS_ITS | Encounter Summary ---
Author Organization [facility] Address [address] [place] [address] Phone Care Team Providers Care Rubber Turner Name Role Phone Nika Hanna MD Primary Care Provider [phone] Nika Hanna MD Unavailable Tracie Sibley DO Primary Care Provider [phone] Tracie Sibley DO Unavailable Encounter Details Date Type Department Care Team (Latest Contact Info) Description 06/04/2021 Transcribe Orders Virtual Department [address] [place], [place] [id number] Nika Hanna MD [address] [place] [address], [address] [place], [place] [address] [email or web address] Breast screening (Primary Dx) Social History Tobacco Use Types Packs/Day Years [...] high school, GED, job training, learning the Irish language, technical skills, or developing parenting skills)? [...] st Contact Info) Description 07/12/2024 Procedure Pass [address] [place] [address] 01/28/2025 1:45 PM EST Appointment [address] [place] [address] Tracie Sibley, DO 234 [facility], [address] [place] [address] documented as of this encounter Results * BI MAMMOGRAM SCREENING WITH TOMOSYNTHESIS WITH CAD (BILATERAL) (08/24/2021 8:46 AM EDT) Anatomical Region Laterality Modality Breast Left, Breast Right, Breast Bilateral Bila teral Mammography 08/24/2021 6:22 PM EDT Impressions 08/24/2021 6:25 PM EDT BILATERAL BREASTS: Negative, no specific mammographic evidence of malignancy. Normal interval follow-up is recommended in 12 months. BI-RADS: BI-RADS CATEGORY: 1 - Negative. DENSITY: There are scattered fibroglandular densities. Narrative 08/24/2021 6:25 PM EDT STUDY: Bilateral screening mammography with tomosynthesis and CAD TECHNIQUE: Bilateral full-field digital screening mammography is obtained and read in conjunction with computer-aided detection. Tomosynthesis as well as 2-D C view imaging were obtained. COMPARISON: Comparison made to multiple prior, most recent August 23, 2020, and most remote February 07, 2014. BREAST COMPOSITION: There are scattered areas of fibroglandular density BILATERAL BREASTS: No significant masses, suspicious calcifications or other abnormalities are seen in either breast. Procedure Note Alfa Bass MD - 08/24/2021 STUDY: Bilateral screening mammography with tomosynthesis and CAD TECHNIQUE: Bilateral full-field digital screening mammography is obtainedand read in conjunction with computer-aided detection. Tomosynthesis aswell as 2-D C view imaging were obtained. COMPARISON: Comparison made to multiple prior, most recent August 23, 2020,and most remote February 07, 2014. BREAST COMPOSITION: There are scattered areas of fibroglandulardensity BILATERAL BREASTS: No significant masses, suspicious calcifications orother abnormalities are seen in either breast. IMPRESSION: BILATERAL BREASTS: Negative, no specific mammographic evidence ofmalignancy. Normal interval follow-up is recommended in 12 months. BI-RADS: BI-RADS CATEGORY: 1 - Negative. DENSITY: There are scattered fibroglandular densities. Nika Hanna MD IMG MG EXAMS Final Result documented in this encounter Visit Diagnoses Diagnosis Breast screening- Primary Breast screening, unspecified Breast screening Breast screening, unspecified documented in this encounter Additional Health Concerns Infection Onset Date Last Indicated Resolved Time CoV-Presumed 01/03/2022 01/03/2022 01/24/2022 1:23 AM EST Assessment Noted Time PHQ-2 Depression Total Score: 1 11/02/19 21 9:04 AM EDT documented as of this encounter Care Teams Rubber Turner Relationship Specialty Start Date End Date Nika Hanna MD [address] [place] [address], [address] [place] [address] [email or web address] PCP - General 11/28/16 11/13/21 Tracie Sibley DO 234 [facility], [facility] 7 [place] [address] [email or web address] PCP - General Family Medicine 11/14/21 Nika Hanna MD [address] [place] [address], [facility] 7 [place] [address] [email or web address] Insurance Assigned Provider 01/11/1705/18/22 Tracie Sibley DO [address] [place] [address], [facility] 7 [place] [address] [email or web address] Insurance Assigned Provider 05/17/23 documented as of this encounter Additional Source Comments The information contained in this document represents components of the legal health record. It is not the complete legal health record.[facility]
--- OUTSIDE RECORDS SUMMARY | 2024-10-26 16:20 | XMS_ITS | Encounter Summary ---
Author Organization [facility] Address [address] [place] [address] Phone Care Team Providers Care Manager Assembly Name Role Phone Tracie Sibley DO Primary Care Provider [phone] Tracie Sibley DO Unavailable [phone] Encounter Details Date Type Department Care Team (Latest Contact Info) Description 07/12/2024 Transcribe Orders Virtual Department [address] [place] [address] Tracie Sibley, DO 234 [facility], [address] [place] [address] [email or web address] Breast screening (Primary Dx) Social History Tobacco [...] st Contact Info) Description 07/12/2024 Procedure Pass [address] [place] [address] 01/28/2025 1:45 PM EST Appointment [address] [place] [address] Tracie Sibley, DO 234 [facility], [address] [place] [address] [email or web address] Scheduled Orders Name Type Priority Associated Diagnoses Orde r Schedule Mammogram Screening (Bilateral) Imaging Routine Breast screening Expected: 08/11/2024, Expires: 07/12/2025 documented as of this encounter Visit Diagnoses Diagnosis Breast screening- Primary Breast screening, unspecified documented in this encounter Additional Health Concerns Assessment Noted Time PHQ-2 Depression Total Score: 2 11/27/19 8:20 AM EDT documented as of this encounter Care Teams Manager Assembly Relationship Specialty Start Date End Date Tracie Sibley DO 234 [facility] 7 [place] [address] [email or web address] PCP - General Family Medicine 11/14/21 Tracie Sibley DO 234 [facility], [facility] 7 [place] [address] Insurance Assigned Provider 05/17/23 documented as of this encounter Additional Source Comments The information contained in this document represents components of the legal health record. It is not the complete legal health record.[facility]
--- OUTSIDE RECORDS SUMMARY | 2024-10-26 16:20 | XMS_ITS | Encounter Summary ---
Author Organization [facility] Address [address] [place] [address] Phone Care Team Providers Care Brushing Machine Operator Name Role Phone Nika Hanna MD Primary Care Provider [phone] Nika Hanna MD Unavailable [phone] Tracie Sibley DO Primary Care Provider [phone] Tracie Sibley DO Unavailable [phone] Encounter Details Date Type Department Care Team (Late st Contact Info) Description 04/08/2019 Ancillary Orders [facility] [address] [place] [address] Nika Hanna MD [address] [place] [address] [address] [place] [address] [email or web address] Breast screening Social History Tobacco Use Types Packs/Day Years Used Date Smoking Tobacco: Never Smokeless Tobacco: Never Comments No Sex and Gender Information Value Date Recorded Sex Assigned at Female 06/09/2023 9:35 AM EDT Legal Sex Female 10:04 PM EDT Gender Identity Female 06/09/2023 9:35 AM EDT Sexual Orientation Straight 06/09/2023 9: 35 AM EDT documented as of this encounter Plan of Treatment Upcoming Encounters Date Type Department Care Team (Late st Contact Info) Description 07/12/2024 Procedure Pass [facility] - [address] [place] [address] 01/28/2025 1:45 PM EST Appointment [address] [place], [place] [address] Tracie Sibley, DO 234 [facility], [address] [place] [address] documented as of this encounter Results * BI MAMMOGRAM SCREENING WITH TOMOSYNTHESIS WITH CAD (BILATERAL) (08/23/2019 8:53 AM EDT) Anatomical Region Laterality Modality Breast Left, Breast Right, Breast Bilateral Bila teral Mammography 08/23/2019 9:06 AM EDT Impressions 08/23/2019 9:09 AM EDT No mammographic evidence of malignancy. BI-RADS CATEGORY: 1 - Negative. DENSITY: The breast tissue is heterogeneously dense, an appearance which lowers the sensitivity of mammography. POS - CDHMAMA Narrative 08/23/2019 9:09 AM EDT Standard digital full-field 2-D C view and two-plane tomographic imaging was performed and compared with multiple prior studies, most recently 06/19/2018, with utilization of computer-aided detection. The breast parenchyma is heterogeneously dense, somewhat limiting mammographic sensitivity. The stromal markings are essentially unchanged in overall appearance and distribution. No dominant spiculated mass, suspicious clustered microcalcifications, or focal zone of pathologic skin thickening or retraction are noted to have arisen in the interim. Procedure Note Todd Momin MD - 08/23/2019 Standard digital full-field 2-D C view and two-plane tomographic imagingwas performed and compared with multiple prior studies, most gnnabbcu39/10/2019, with utilization of computer-aided detection. The breast parenchyma is heterogeneously dense, somewhat limitingmammographic sensitivity. The stromal markings are essentially unchangedin overall appearance and distribution. No dominant spiculated mass,suspicious clustered microcalcifications, or focal zone of pathologic skinthickening or retraction are noted to have arisen in the interim. IMPRESSION: No mammographic evidence of malignancy. BI-RADS CATEGORY: 1 - Negative. DENSITY: The breast tissue is heterogeneously dense, an appearance whichlowers the sensitivity of mammography. POS - CDHMAMA Nika Hanna MD IMG MG EXAMS Final Result documented in this encounter Visit Diagnoses Diagnosis Breast screening Breast screening, unspecified Breast screening Breast screening, unspecified documented in this encounter Additional Health Concerns Infection Onset Date Last Indicated Resolved Time CoV-Presumed 01/03/2022 01/03/2022 01/24/2022 1:23 AM EST Assessment Noted Time PHQ-2 Depression Total Score: 1 06/26/19 9:06 AM EDT documented as of this encounter Care Teams Brushing Machine Operator Relationship Specialty Start Date End Date Nika Hanna MD [address] [place] [address] [place] [address] PCP - General 11/28/16 11/13/21 Tracie Sibley DO [address] [place] [address] [place] [address] PCP - General Family Medicine 11/14/21 Nika Hanna MD [address] [place] [address] [place] [address] Insurance Assigned Provider 01/11/1705/18/22 Tracie Sibley DO [address] [place] [address] [place] [address] Insurance Assigned Provider 05/17/23 documented as of this encounter Additional Source Comments The information contained in this document represents components of the legal health record. It is not the complete legal health record.[facility]
--- OUTSIDE RECORDS SUMMARY | 2024-10-26 16:20 | XMS_ITS | Encounter Summary ---
Author Organization [facility] Address [address] [place] [address] Phone Care Team Providers Care Curer Acid Drum Name Role Phone Tracie Sibley DO Primary Care Provider [phone] Tracie Sibley DO Unavailable [phone] Reason for Referral * Hospital - Outpatient - Closed Specialty Diagnoses / Procedures Referred By Tavo hairston Referred To Contact Radiology Diagnoses History of DVT (deep vein thrombosis) Procedures US Lower Extremity Veins Duplex (Right) US Lower Extremity Arteries Duplex Complete (Bilateral) Tracie Sibley DO Phone: tel: fax: [email or web address] Referral ID Status Reason Start Date Expiration Date Visits Re quested Visits Authorized [id number] Closed 04/06/2024 1 1 Encounter Details Date Type Department Care Team (Late st Contact Info) Description 04/13/2024 Ancillary Orders [facility] [address] [place] [address] Tracie Sibley DO 234 [facility], [address] [place] [address] [email or web address] History of DVT (deep vein thrombosis) (Primary Dx) Social History Tobacco Use Types [...] Contact Info) Description 07/12/2024 Procedure Pass [address] [place] [address] 01/28/2025 1:45 PM EST Appointment [address] [place] [address] Tracie Sibley, DO 234 [facility], [address] [place] [address] documented as of this encounter Results * US Lower Extremity Veins Duplex (Right) (04/13/2024 10:47 AM EST) Anatomical Region Laterality Modality Hip Right, Thigh Right, Knee Right, Leg Right, Ankle Right, Foot Right Ultrasound 04/13/2024 10:5 6 AM EST Impressions 04/13/2024 11:01 AM EST * No evidence of deep or superficial venous thrombosis in the visualized veins of the right lower extremity. Narrative 04/13/2024 11:01 AM EST US LOWER EXTREMITY VEINS DUPLEX (RIGHT) Referring clinician's provided indication for this examination in Epic: Other Indication (Please use free text); Right leg pain TECHNIQUE: Lower extremity venous ultrasound with color and spectral Doppler. COMPARISON: US LOWER EXTREMITY VEINS DUPLEX (RIGHT) 2023- FINDINGS: Exam Quality: Technically adequate exam demonstrates: Right lower extremity Common femoral vein: Normal compressibility and flow characteristics. Femoral vein: Normal compressibility and flow characteristics. Proximal profunda femoral vein: Normal compressibility. Popliteal vein: Normal compressibility and flow characteristics. Posterior tibial veins: Normal compressibility. Peroneal veins: Normal compressibility. Great saphenous vein: Normal compressibility at the saphenofemoral junction. Contralateral common femoral vein: Normal compressibility. Procedure Note Chino Gutierrez MBBS - 04/13/2024 US LOWER EXTREMITY VEINS DUPLEX (RIGHT) Referring clinician's provided indication for this examination in Epic:Other Indication (Please use free text); Right leg pain TECHNIQUE: Lower extremity venous ultrasound with color and spectralDoppler. COMPARISON: US LOWER EXTREMITY VEINS DUPLEX (RIGHT) FINDINGS: Exam Quality: Technically adequate exam demonstrates: Right lower extremity Common femoral vein: Normal compressibility and flow characteristics. Femoral vein: Normal compressibility and flow characteristics. Proximal profunda femoral vein: Normal compressibility. Popliteal vein: Normal compressibility and flow characteristics. Posterior tibial veins: Normal compressibility. Peroneal veins: Normal compressibility. Great saphenous vein: Normal compressibility at the saphenofemoraljunction. Contralateral common femoral vein: Normal compressibility. IMPRESSION: * No evidence of deep or superficial venous thrombosis in the visualizedveins of the right lower extremity. us Tracie Sibley DO CV US VASCULAR Final Result documented in this encounter Visit Diagnoses Diagnosis History of DVT (deep vein thrombosis) History of DVT (deep vein thrombosis)- Primary documented in this encounter Additional Health Concerns Assessment Noted Time PHQ-2 Depression Total Score: 2 11/27/19 24 8:20 AM EDT documented as of this encounter Care Teams Curer Acid Drum Relationship Specialty Start Date End Date Tracie Sibley DO [address] [place] [address] 7 [place] [address] PCP - General Family Medicine 11/14/21 Tracie Sibley DO [address] [place] [address] 7 [place] [address] Insurance Assigned Provider 05/17/23 documented as of this encounter Additional Source Comments The information contained in this document represents components of the legal health record. It is not the complete legal health record.[facility]
--- OUTSIDE RECORDS SUMMARY | 2024-10-26 16:20 | XMS_ITS | Encounter Summary ---
Author Organization [facility] Address [address] [place] [address] Phone Care Team Providers Care Gin Operator Name Role Phone Tracie Sibley DO Primary Care Provider [phone] Tracie Sibley DO Unavailable [phone] Encounter Details Date Type Department Care Team (Late st Contact Info) Description 06/09/2023 Procedure Pass [facility] - [address] [place] [address] Social History Tobacco Use Types Packs/Day Years [...] appointments or from getting medications? No 04/26/2020 Digital Access Answer Date Recorded No 07/05/2022 No 07/05/2022 Reliable internet access at home? Not on file 07/05/2022 Device with a working camera? Not on file Comments No Sex and Gender Information Value Date Recorded Sex Assigned at Female 06/09/2023 9:35 AM EDT Legal Sex Female 10:04 PM EDT Gender Identity Female 06/09/2023 9:35 AM EDT Sexual Orientation Straight 06/09/2023 9: 35 AM EDT documented as of this encounter Plan of Treatment Upcoming Encounters Date Type Department Care Team (Late st Contact Info) Description 07/12/2024 Procedure Pass [address] [place] [address] 01/28/2025 1:45 PM EST Appointment [address] [place] [address] Tracie Sibley DO [address] [address] documented as of this encounter Visit Diagnoses Not on filedocumented in this encounter Additional Health Concerns Assessment Noted Time PHQ-2 Depression Total Score: 0 11/15/19 7:56 AM EDT documented as of this encounter Care Teams Gin Operator Relationship Specialty Start Date End Date Tracie Sibley DO [address] [address] [place] [address] PCP - General Family Medicine 11/14/21 Tracie Sibley DO [address] [address] Insurance Assigned Provider 05/17/23 documented as of this encounter Additional Source Comments The information contained in this document represents components of the legal health record. It is not the complete legal health record.[facility]
--- OUTSIDE RECORDS SUMMARY | 2024-10-26 16:20 | XMS_ITS | Encounter Summary ---
Author Organization [facility] Address [address] [place] [address] Phone Care Team Providers Care Fitting Room Attendant Name Role Phone Nika Hanna MD Primary Care Provider Nika Hanna MD Unavailable Tracie Sibley DO Primary Care Provider Tracie Sibley DO Unavailable Encounter Details Date Type Department Care Team (Late st Contact Info) Description 04/13/2018 Ancillary Orders [facility] [address] [place] [address] Nika Hanna MD [address] [place] [address] [address] [place] [address] [email or web address] Breast screening Social History Tobacco Use Types [...] st Contact Info) Description 07/12/2024 Procedure Pass [facility] - [address] [place] [address] 01/28/2025 1:45 PM EST Appointment [address] [place], [place] [address] Tracie Sibley, DO [address] [place] [address], [address] [place] [address] [email or web address] documented as of this encounter Results * BI MAMMOGRAM SCREENING WITH TOMOSYNTHESIS WITH CAD (BILATERAL) (06/19/2018 9:41 AM EDT) Anatomical Region Laterality Modality Breast Left, Breast Right, Breast Bilateral Bila teral Mammography 06/19/2018 1:07 PM EDT Impressions 06/19/2018 1:08 PM EDT No mammographic evidence of malignancy. RECOMMENDED FOLLOWUP: Routine screening mammography is recommended, as clinically appropriate. The results will be sent to the patient. BI-RADS CATEGORY: 1 - Negative. BREAST DENSITY: There are scattered fibroglandular densities. POS - CDHMAMA Narrative 06/19/2018 1:08 PM EDT BI MAMMOGRAM SCREENING WITH TOMOSYNTHESIS WITH CAD (BILATERAL) HISTORY: Screening. COMPARISON: Prior studies dating back to 02/05/2012, most recently 06/18/2017. TECHNIQUE: Digital breast tomosynthesis was performed in CC and MLO projections. Reconstructed 2-D C-views generated from the tomosynthesis images. Images interpreted in conjunction with R-2 Image Mold Yard Crane Operator computer-aided detection (CAD). FINDINGS: BREAST DENSITY: There are scattered fibroglandular densities. There are no suspicious masses, suspicious areas of architectural distortion or suspicious clusters of microcalcifications. Procedure Note Samaria Herr MD - 06/19/2018 BI MAMMOGRAM SCREENING WITH TOMOSYNTHESIS WITH CAD (BILATERAL) HISTORY: Screening. COMPARISON: Prior studies dating back to 02/05/2012, most gfayhkpf22/09/2018. TECHNIQUE: Digital breast tomosynthesis was performed in CC and MLOprojections. Reconstructed 2-D C-views generated from the tomosynthesisimages. Images interpreted in conjunction with R-2 Image Checkercomputer-aided detection (CAD). FINDINGS: BREAST DENSITY: There are scattered fibroglandular densities. There are no suspicious masses, suspicious areas of architecturaldistortion or suspicious clusters of microcalcifications. IMPRESSION: No mammographic evidence of malignancy. RECOMMENDED FOLLOWUP: Routine screening mammography is recommended, asclinically appropriate. The results will be sent to the patient. BI-RADS CATEGORY: 1 - Negative. BREAST DENSITY: There are scattered fibroglandular densities. POS - CDHMAMA Nika Hanna MD IMG [...] documented as of this encounter Care Teams Fitting Room Attendant Relationship Specialty Start Date End Date iNka Hanna MD [address] [place] [address], [facility] [address] [place] [address] [email or web address] PCP - General 11/28/16 11/13/21 Tracie Sibley DO [address] [place] [address] [place] [address] PCP - General Family Medicine 11/14/21 Nika Hanna MD [address] [place] [address] [place] [address] [email or web address] Insurance Assigned Provider 01/11/1705/18/22 Tracie Sibley DO [address] [place] [address] 7 [place] [address] Insurance Assigned Provider 05/17/23 documented as of this encounter Additional Source Comments The information contained in this document represents components of the legal health record. It is not the complete legal health record.[facility]
--- OUTSIDE RECORDS SUMMARY | 2024-10-26 16:20 | XMS_ITS | Encounter Summary ---
Author Organization [facility] Address [address] [place] [address] Phone Care Team Providers Care Cattle Killer Name Role Phone Tracie Sibley DO Primary Care Provider [phone] Tracie Sibley DO Unavailable [phone] Encounter Details Date Type Department Care Team (Latest Contact Info) Description 06/17/2022 Transcribe Orders Virtual Department [address] [place] [address] Tracie Sibley, DO 234 [facility], [address] [place] [address] [email or web address] Breast screening (Primary Dx) Social History Tobacco [...] Contact Info) Description 07/12/2024 Procedure Pass [address] [place] [address] 01/28/2025 1:45 PM EST Appointment [address] [place] [address] Tracie Sibley, DO 234 [facility], [address] [place] [address] [email or web address] documented as of this encounter Results * BI MAMMOGRAM SCREENING WITH TOMOSYNTHESIS WITH CAD (BILATERAL) (08/26/2022 8:43 AM EDT) Anatomical Region Laterality Modality Breast Left, Breast Right, Breast Bilateral Bila teral Mammography 08/29/2022 2:36 PM EDT Impressions 08/29/2022 2:40 PM EDT No findings suspicious for malignancy are identified. In the absence of a worrisome palpable abnormality, annual screening mammography is recommended. BI-RADS CATEGORY: 1 - Negative. DENSITY: There are scattered fibroglandular densities. Narrative 08/29/2022 2:40 PM EDT AVAILABLE COMPARISON: 08/24/2021 through 10/20/2002 Bilateral 3-D tomosynthesis with 2-D reconstructions in the CC and MLO projection. Computer-aided detection system was utilized. No new mass, asymmetry, architectural distortion or suspicious calcifications have become apparent in either breast. Procedure Note Kaiden Herrera MD - 08/29/2022 AVAILABLE COMPARISON: 08/24/2021 through 10/20/2002 Bilateral 3-D tomosynthesis with 2-D reconstructions in the CC and MLOprojection. Computer-aided detection system was utilized. No new mass, asymmetry, architectural distortion or suspiciouscalcifications have become apparent in either breast. IMPRESSION: No findings suspicious for malignancy are identified. In the absence of aworrisome palpable abnormality, annual screening mammography isrecommended. BI-RADS CATEGORY: 1 - Negative. DENSITY: There are scattered fibroglandular densities. Tracie Sibley DO IMG MG EXAMS Final Result documented in this encounter Visit Diagnoses Diagnosis Breast screening- Primary Breast screening, unspecified Breast screening Breast screening, unspecified documented in this encounter Additional Health Concerns Assessment Noted Time PHQ-2 Depression Total Score: 0 11/15/19 7:56 AM EDT documented as of this encounter Care Teams Cattle Killer Relationship Specialty Start Date End Date Tracie Sibley DO [address] [place] [address] 7 [place] [address] [email or web address] PCP - General Family Medicine 11/14/21 Tracie Sibley DO [address] [place] [address] 7 [place] [address] [email or web address] Insurance Assigned Provider 05/17/23 documented as of this encounter Additional Source Comments The information contained in this document represents components of the legal health record. It is not the complete legal health record.[facility]
--- OUTSIDE RECORDS SUMMARY | 2024-10-26 16:20 | XMS_ITS | Encounter Summary ---
Author Organization [facility] Address [address] [place] [address] Phone Care Team Providers Care Manager Retail Sales Name Role Phone Tracie Sibley Melba DO Primary Care Provider [phone] Tracie Sibley DO Unavailable [phone] Encounter Details Date Type Department Care Team (Latest Contact Info) Description 06/24/2022 Transcribe Orders Virtual Department [address] [place] [address] Rosalba Morel NP [address] [place] [address] [email or web address] Epigastric abdominal pain (Primary Dx); RUQ abdominal pain; Nausea Social History Tobacco Use Types Packs/Day Years [...] st Contact Info) Description 07/12/2024 Procedure Pass [address] [place] [address] 01/28/2025 1:45 PM EST Appointment [address] [place] [address] Tracie Sibley DO 234 [facility] 7 [place] [address] documented as of this encounter Visit Diagnoses Diagnosis Epigastric abdominal pain- Primary Abdominal pain, epigastric RUQ abdominal pain Abdominal pain, right upper quadrant Nausea Nausea alone documented in this encounter Additional Health Concerns Assessment Noted Time PHQ-2 Depression Total Score: 0 11/15/19 22 7:56 AM EDT documented as of this encounter Care Teams Manager Retail Sales Relationship Specialty Start Date End Date Tracie Sibley DO 234 [facility] 7 [place] [address] PCP - General Family Medicine 11/14/21 Tracie Sibley DO 234 [facility] 7 [place] [address] Insurance Assigned Provider 05/17/23 documented as of this encounter Additional Source Comments The information contained in this document represents components of the legal health record. It is not the complete legal health record.[facility]
--- OUTSIDE RECORDS SUMMARY | 2024-10-26 16:20 | XMS_ITS | Encounter Summary ---
Author Organization [facility] Address [address] [place] [address] Phone Care Team Providers Care Billet Heater Name Role Phone Nika Hanna MD Primary Care Provider Nika Hanna MD Unavailable Tracie Sibley DO Primary Care Provider Tracie Sibley DO Unavailable Encounter Details Date Type Department Care Team (Latest Contact Info) Description 01/19/2018 Transcribe Orders [facility] [address] [place], [place] [id number] Nika Hanna MD [address] [place] [address] [address] [place], [place] [id number] [email or web address] Routine general medical examination at a health care facility (Primary Dx) Social History Tobacco Use Types [...] st Contact Info) Description 07/12/2024 Procedure Pass [address] [place] [address] 01/28/2025 1:45 PM EST Appointment [facility] - [address] [place] [address] Tracie Sibley, DO 234 [facility], [address] [place] [address] [email or web address] documented as of this encounter Results * Comprehensive metabolic panel (01/19/2018 12:07 PM EST) SODIUM 141 133 - 146 mmol/L [facility] POTASSIUM 4.0 3.3 - 5.1 mmol/L [facility] CHLORIDE 103 96 - 108 mmol/L [facility] CO2 29 21 - 35 mmol/L [facility] BUN 15 6 - 19 mg/dL [facility] CREATININE 0.70 0.5 - 1.5 mg/dL [facility] GLUCOSE 97 70 - 99 mg/dL [facility] ALBUMIN 4.0 3.9 - 4.8 g/dL [facility] TOTAL PROTEIN 6.6 6.5 - 8.0 g/dL [facility] CALCIUM 9.3 8.4 - 10.3 mg/dL [facility] ALKALINE PHOSPHATASE 79 39 - 117 U/L [facility] TOTAL BILIRUBIN 0.3 0.0 - 1.2 mg/dL [facility] AST 18 0 - 37 U/L [facility] ALT 24 0 - 40 U/L [facility] GLOBULIN 2.6 1 - 4.8 g/dL [facility] EGFR 88 >59 mL/min/1.7 3m2 [facility] Comment:If patient is black, multiply result by 1.159. Estimated glomerular filtration rate calculated using the CKD-EPI equation. ANION GAP 13 10 - 20 mmol/L [facility] Blood 01/19/2018 12:0 7 PM EST 01/19/2018 12:08 PM EST us Nika Hanna MD LAB BLOOD ORDERABLES Final Re sult [facility] [address] [place] [address] documented in this encounter Visit Diagnoses Diagnosis Routine general medical examination at a health care facility- Primary documented in this encounter Additional Health Concerns Infection Onset Date Last Indicated Resolved Time CoV-Presumed 01/03/2022 01/03/2022 01/24/2022 1:23 AM EST Assessment Noted Time PHQ-2 Depression Total Score: 1 06/26/19 18 9:06 AM EDT documented as of this encounter Care Teams Billet Heater Relationship Specialty Start Date End Date Nika Hanna MD [address] [place] [address], [facility] [address] [place] [address] PCP - General 11/28/16 11/13/21 Tracie Sibley DO [address] [place] [address] [place] [address] PCP - General Family Medicine 11/14/21 Nika Hanna MD [address] [place] [address], [facility] [address] [place] [address] Insurance Assigned Provider 01/11/1705/18/22 Tracie Sibley DO [address] [place] [address], [facility] [address] [place] [address] Insurance Assigned Provider 05/17/23 documented as of this encounter Additional Source Comments The information contained in this document represents components of the legal health record. It is not the complete legal health record.[facility]
--- OUTSIDE RECORDS SUMMARY | 2024-10-26 16:20 | XMS_ITS | Encounter Summary ---
Author Organization [facility] Address [address] [place] [address] Phone Care Team Providers Care Gum Mixer Name Role Phone Nika Hanna MD Primary Care Provider [phone] Nika Hanna MD Unavailable Tracie Sibley DO Primary Care Provider [phone] Tracie Sibley DO Unavailable Encounter Details Date Type Department Care Team (Latest Contact Info) Description 11/04/2018 Transcribe Orders [facility] [address] [place] [address] Mukesh Riley MD, PhD [address] [place] [id number] [email or web address] Disease of thyroid gland (Primary Dx) Social History Tobacco Use Types [...] st Contact Info) Description 07/12/2024 Procedure Pass [address] [place] [address] 01/28/2025 1:45 PM EST Appointment [address] [place] [address] Tracie Sibley, DO 234 [facility], [address] [place] [address] documented as of this encounter Procedures Procedure Name Priority Date/Time Associated Diagnosis Comments CREATININE/EGFR Routine 11/04/2018 8:20 AM EDT Disease of thyroid gland LYME SCREEN WITH REFLEX TO WESTERN BLOT, BLOOD Routine 11/04/2018 8:20 AM EDT Disease of thyroid gland BUN Routine 11/04/2018 8:20 AM EDT Disease of thyroid gland TSH Routine 11/04/2018 8:20 AM EDT Disease of thyroid gland FREE T4 Routine 11/04/2018 8:20 AM EDT Disease of thyroid gland HEMOGLOBIN A1C Routine 11/04/2018 8:20 AM EDT Disease of thyroid gland GLUCOSE Routine 11/04/2018 8:20 AM EDT Disease of thyroid gland documented in this encounter Results * TSH (11/04/2018 8:20 AM EDT) TSH 1.20 0.27 - 4.20 uIU/mL [facility] Blood 11/04/2018 8:20 AM EDT 11/04/2018 8:24 AM EDT us Mukesh Riley MD, PhD LAB BLOOD ORDERABLES Fi nal Result [facility] [address] [place] [address] * Free T4 (11/04/2018 8:20 AM EDT) FREE T4 1.1 0.9 - 1.7 ng/dL [facility] Blood 11/04/2018 8:20 AM EDT 11/04/2018 8:24 AM EDT us Mukesh Riley MD, PhD LAB BLOOD ORDERABLES Fi nal Result Performing Organization Address [facility] Co de Phone Number [address] [address] * Lyme screen with reflex to Western blot, blood (11/04/2018 8:20 AM EDT) Lyme AB IgG Negative Negative [facility] Lyme AB IgM Negative Negative [facility] Blood 11/04/2018 8:20 AM EDT 11/04/2018 8:24 AM EDT us Mukesh Riley MD, PhD LAB BLOOD ORDERABLES Fi nal Result Performing Organization Address [facility] Co de Phone Number [address] [address] * Hemoglobin A1c (11/04/2018 8:20 AM EDT) HEMOGLOBIN A1C 5.6 4.3 - 5.8 % [facility] Blood 11/04/2018 8:20 AM EDT 11/04/2018 8:24 AM EDT us Mukesh Riley MD, PhD LAB BLOOD ORDERABLES Fi nal Result Performing Organization Address [facility] Co de Phone Number [address] [address] * Creatinine/eGFR (11/04/2018 8:20 AM EDT) CREATININE 0.60 0.5 - 1.5 mg/dL [facility] EGFR 92 >59 mL/min/1.7 3m2 [facility] Comment:If patient is black, multiply result by 1.159. Estimated glomerular filtration rate calculated using the CKD-EPI equation. Blood 11/04/2018 8:20 AM EDT 11/04/2018 8:24 AM EDT Mukesh Riley MD, PhD LAB BLOOD ORDERABLES Fi nal Result Performing Organization Address [facility] Co de Phone Number [address] [address] * BUN (11/04/2018 8:20 AM EDT) BUN 16 6 - 19 mg/dL [facility] Blood 11/04/2018 8:20 AM EDT 11/04/2018 8:24 AM EDT Mukesh Riley MD, PhD LAB BLOOD ORDERABLES Fi nal Result Performing Organization Address [facility] Co de Phone Number [address] [address] * Glucose (11/04/2018 8:20 AM EDT) GLUCOSE 95 70 - 99 mg/dL [facility] Blood 11/04/2018 8:20 AM EDT 11/04/2018 8:24 AM EDT Mukesh Riley MD, PhD LAB BLOOD ORDERABLES Fi nal Result Performing Organization Address [facility] de Phone Number [address] [address] documented in this encounter Visit Diagnoses Diagnosis Disease of thyroid gland- Primary Unspecified disorder of thyroid documented in this encounter Additional Health Concerns Infection Onset Date Last Indicated Resolved Time CoV-Presumed 01/03/2022 01/03/2022 01/24/2022 1:23 AM EST Assessment Noted Time PHQ-2 Depression Total Score: 1 06/26/19 18 9:06 AM EDT documented as of this encounter Care Teams Gum Mixer Relationship Specialty Start Date End Date Nika Hanna MD [address] [place] [address], [address] [place] [address] [email or web address] PCP - General 11/28/16 11/13/21 Tracie Sibley DO 234 [facility], [facility] [address] [place] [address] [email or web address] PCP - General Family Medicine 11/14/21 Nika Hanna MD [address] [place] [address] 7 [place] [address] [email or web address] Insurance Assigned Provider 01/11/1705/18/22 Tracie Sibley DO [address] [place] [address] 7 [place] [address] [email or web address] Insurance Assigned Provider 05/17/23 documented as of this encounter Additional Source Comments The information contained in this document represents components of the legal health record. It is not the complete legal health record.[facility]
--- OUTSIDE RECORDS SUMMARY | 2024-10-26 16:21 | XMS_ITS | Encounter Summary ---
Author Organization [facility] Address [address] [place] [address] Phone Care Team Providers Care Sas Etl Developer Name Role Phone Tracie Sibley DO Primary Care Provider [phone] Tracie Sibley DO Unavailable [phone] Encounter Details Date Type Department Care Team (Latest Contact Info) Description 06/09/2023 Transcribe Orders Virtual Department [address] [place] [address] Tracie Sibley, DO 234 [facility], [address] [place] [address] [email or web address] Breast screening (Primary Dx) Social History Tobacco [...] st Contact Info) Description 07/12/2024 Procedure Pass [address] [place] [address] 01/28/2025 1:45 PM EST Appointment [address] [place] [address] Tracie Sibley, DO [address] [place] [address], [address] [place] [address] documented as of this encounter Results * [...] be notified of the results and recommendations. Tracie Sibley DO IMG MG EXAMS Final Result documented in this encounter Visit Diagnoses Diagnosis Breast screening- Primary Breast screening, unspecified Breast screening Breast screening, unspecified documented in this encounter Additional Health Concerns Assessment Noted Time PHQ-2 Depression Total Score: 0 11/15/19 7:56 AM EDT documented as of this encounter Care Teams Sas Etl Developer Relationship Specialty Start Date End Date Tracie Sibley DO [address] [place] [address] [email or web address] PCP - General Family Medicine 11/14/21 Tracie Sibley DO [address] [place] [address] 7 [place] [address] [email or web address] Insurance Assigned Provider 05/17/23 documented as of this encounter Additional Source Comments The information contained in this document represents components of the legal health record. It is not the complete legal health record.[facility]
--- OUTSIDE RECORDS SUMMARY | 2024-10-26 16:21 | XMS_ITS | Encounter Summary ---
Author Organization [facility] Address [address] [place] [address] Phone Care Team Providers Care Bridge Inspector Name Role Phone Nika Hanna MD Primary Care Provider [phone] Nika Hanna MD Unavailable Tracie Sibley DO Primary Care Provider [phone] Tracie Sibley DO Unavailable [phone] Encounter Details Date Type Department Care Team (Late st Contact Info) Description 03/27/2021 Procedure Pass [facility] - [address] [id number] Social History Tobacco Use Types Packs/Day Years [...] high school, GED, job training, learning the Portuguese language, technical skills, or developing parenting skills)? [...] st Contact Info) Description 07/12/2024 Procedure Pass [address] [place] [address] 01/28/2025 1:45 PM EST Appointment [address] [place] [address] Tracie Sibley DO 234 [facility] 7 [place] [address] [email or web address] documented as of this encounter Visit Diagnoses Not on filedocumented in this encounter Additional Health Concerns Infection Onset Date Last Indicated Resolved Time CoV-Presumed 01/03/2022 01/03/2022 01/24/2022 1:23 AM EST Assessment Noted Time PHQ-2 Depression Total Score: 1 11/02/19 21 9:04 AM EDT documented as of this encounter Care Teams Bridge Inspector Relationship Specialty Start Date End Date Nika Hanna MD 234 [facility] 7 [place] [address] [email or web address] PCP - General 11/28/16 11/13/21 Tracie Sibley DO 234 [facility] 7 [place] [address] PCP - General Family Medicine 11/14/21 Nika Hanna MD [address] [place] [address], [address] [place] [address] [email or web address] Insurance Assigned Provider 01/11/1705/18/22 Tracie Sibley DO 234 [facility] 7 [place] [address] [email or web address] Insurance Assigned Provider 05/17/23 documented as of this encounter Additional Source Comments The information contained in this document represents components of the legal health record. It is not the complete legal health record.[facility]
--- OUTSIDE RECORDS SUMMARY | 2024-10-26 16:21 | XMS_ITS | Encounter Summary ---
Author Organization [facility] Address [address] [place] [address] Phone Care Team Providers Care Gluing Machine Feeder Name Role Phone Tracie Sibley DO Primary Care Provider [phone] Tracie Sibley DO Unavailable [phone] Reason for Visit * Reason Onset Date Comments Follow-up 05/16/2023 Palpitations 05/16/2023 Encounter Details Date Type Department Care Team (Late st Contact Info) Description 05/16/2023 Nurse Triage [facility] [address] [place] [address] Tracie Sibley, DO 234 [facility] 7 [place] [address] [email or web address] Follow-up; Palpitations Social History Tobacco Use Types Packs/Day Years [...] AM EDT documented as of this encounter Progress Notes * Kristen Mix RN - 05/19/2023 4:42 PM EDT [facility] ED notes are scanned into patient's chart in media. On 05/16/23, patient presented to ED with right leg pain. Ultrasound completed, positive for DVT. Eliquis started. Outgoing call to patient. Patient reports leg pain improved, but has felt mild intermittent palpitations since ED visit. Appointment made for tomorrow morning, with advice to go to ED with worsening symptoms. See triage note. To Dr. Sibley. Reason for Disposition Age > 60 years (Exception: Brief heartbeat symptoms that went away and now feels well.) Protocols used: Heart Rate and Heartbeat Hakrgpmad-ETHHW-JL Nurse Triage Encounter Note Reason for Triage Toan Tate contacted office for Follow-Up,Palpitations Call Disposition See Today In Office Patient/caregiver understands and will follow disposition: Yes Patient/caregiver understands and will follow care advice: Yes, With Modifications Disposition Comments: Protocols used: Heart Rate And Heartbeat Dlwypzndn-Dmdvm-Aq Initial Symptom Screening and Assessment IA Symptom Onset 3-5 days Symptom Severity Mild - does not interfere with normal activities Symptom Pattern Intermittent (comes and goes) Aggravating factors or triggers Unsure Location? Chest Fever? No Pain level No pain reported Medication Considerations Anticoagulant Recent surgery? No Known allergy? No Recent travel? No Other related symptoms patient evaluated in [facility] ED for DVT. started on Eliquis. since DC from the ED, patient reports mild intermittent palpitations. Denies chest pain/shortness breath/dizziness. States her son has the same thing, and it goes away. Breathing or Chest Symptoms (Resp/Cardiac) Cardiac symptoms Palpitations Recurrent symptom? Yes Last episode intermittent x 3 days Other breathing or chest symptoms? started on Eliquis Care Advice Given Care Advice Patient/Caregiver understands and will follow care advice?: Yes, with modifications SEE IN OFFICE TODAY: * You need to be examined today. Let me give you an appointment. * IF NO AVAILABLE APPOINTMENTS: You need to be seen in the Urgent Care Center. Another choice is togo to the Emergency Department. Patient opted for appointment tomorrow, with advice to go to ED with worsening symptoms. CALL BACK IF: * Chest pain, lightheadedness, or difficulty breathing occurs * Heart beating more than 140 beats / minute * More than 3 extra or skipped beats / minute * You become worse Patient will call back with additional questions or if symptoms change or worsen Kristen Mix RN Reason for Disposition and Assessment * Joshua Alexander - 05/19/2023 2:13 PM EDT Pt called to follow up on this issue. Please contact pt and advise. Central Support Assistant Professor Of Archaeology (Please do not reply to this user; this inbox is not monitored.) Thank you. * Joshua Alexander - 05/16/2023 4:30 PM EDT Pt called to schedule a f/u for a recent emergency department visit. Pt stated that she was seen [facility] for a blood clot. geophysical prospecting permit agent unable to schedule f/u within timeframeguidelines. Please contact pt and advise. Central Support Assistant Professor Of Archaeology (Please do not reply to this user; this inbox is not monitored.) Thank you. documented in this encounter Plan of Treatment Upcoming Encounters Date Type Department Care Team (Late st Contact Info) Description 07/12/2024 Procedure Pass [address] [place] [address] 01/28/2025 1:45 PM EST Appointment [address] [place] [address] Tracie Sibley DO 234 [facility] 7 [place] [address] [email or web address] documented as of this encounter Visit Diagnoses Not on filedocumented in this encounter Additional Health Concerns Assessment Noted Time PHQ-2 Depression Total Score: 0 11/15/19 7:56 AM EDT documented as of this encounter Care Teams Gluing Machine Feeder Relationship Specialty Start Date End Date Tracie Sibley DO 234 [facility] 7 [place] [address] [email or web address] PCP - General Family Medicine 11/14/21 Tracie Sibley DO 234 [facility] 7 [place] [address] [email or web address] Insurance Assigned Provider 05/17/23 documented as of this encounter Additional Source Comments The information contained in this document represents components of the legal health record. It is not the complete legal health record.[facility]
== END 2024-10-26 13:09 | disposition home or self-care (01) ==
LOC: HO.HCS 12:15
PROVIDERS: Visit Provider Internal Medicine
DX: R03.0 Elevated blood-pressure reading, without diagnosis of hypertension (principal); E78.5 Hyperlipidemia, unspecified; Z82.49 Family history of ischemic heart disease and other diseases of the circulatory system; R94.31 Abnormal electrocardiogram [ECG] [EKG]
CPT/HCPCS: 93010; 99214; G2211

== ENCOUNTER → 2024-10-26 12:14 | Outpatient (BNVA) | payer MEDICARE, OTHER, SELFPAY | PROVIDERS: Visit Provider Internal Medicine | DX: R94.31 Abnormal electrocardiogram [ECG] [EKG] (principal); Z82.49 Family history of ischemic heart disease and other diseases of the circulatory system; E78.5 Hyperlipidemia, unspecified; R03.0 Elevated blood-pressure reading, without diagnosis of hypertension | CPT/HCPCS: 93005; 99212 ==

== ENCOUNTER → 2024-11-30 07:31 | Outpatient (REF) | payer MEDICARE, OTHER, SELFPAY ==
--- OUTSIDE RECORDS SUMMARY | 2024-11-30 07:34 | XMS_ITS | Encounter Summary ---
Author Organization [facility] Address [address] [place] [address] Phone Care Team Providers Care Rubber Off Name Role Phone Tracie Sibley DO Primary Care Provider [phone] Tracie Sibley DO Unavailable [phone] Encounter Details Date Type Department Care Team (Late st Contact Info) Description 06/17/2022 Procedure Pass [facility] - [address] [place] [address] Social History Tobacco Use Types Packs/Day Years [...] st Contact Info) Description 07/12/2024 Procedure Pass [address] [place] [address] 12/02/2024 3:45 PM EDT Office Visit [facility] Medical [facility] Medicine 234 [facility] [place] [address] Emmy Wilson FNP [address] [address] [place] [address] 01/28/2025 1:45 PM EST Appointment [address] [place] [address] Tracie Sibley DO [address] [address] [place] [address] [email or web address] documented as of this encounter Visit Diagnoses Not on filedocumented in this encounter Additional Health Concerns Assessment Noted Time PHQ-2 Depression Total Score: 0 11/15/19 22 7:56 AM EDT documented as of this encounter Care Teams Rubber Off Relationship Specialty Start Date End Date Tracie Sibley DO [address] [place] [address] [place] [address] [email or web address] PCP - General Family Medicine 11/14/21 Tracie Sibley DO [address] [place] [address] [place] [address] Insurance Assigned Provider 05/17/23 documented as of this encounter Additional Source Comments The information contained in this document represents components of the legal health record. It is not the complete legal health record.[facility]
--- OUTSIDE RECORDS SUMMARY | 2024-11-30 07:34 | XMS_ITS | Encounter Summary ---
Author Organization [facility] Address [address] [place] [address] Phone Care Team Providers Care Licensing Manager Name Role Phone Nika Hanna MD Primary Care Provider [phone] Nika Hanna MD Unavailable [phone] Tracie Sibley DO Primary Care Provider [phone] Tracie Sibley DO Unavailable Encounter Details Date Type Department Care Team (Latest Contact Info) Description 06/04/2021 Transcribe Orders Virtual Department 30 [place], [place] [id number] Nika Hanna MD [address] [place] [address], [address] [place], [place] [id number] [email or web address] Breast screening (Primary Dx) Social History [...] high school, GED, job training, learning the [place] language, technical skills, or developing parenting skills)? [...] st Contact Info) Description 07/12/2024 Procedure Pass [address] [place] [address] 12/02/2024 3:45 PM EDT Office Visit [facility] Medical [facility] Medicine [address] [place] [address] Emmy Wilson, CARLOS [address] [address] [email or web address] 01/28/2025 1:45 PM EST Appointment [address] [place] [address] Tracie Sibley, [address] [address] documented as of this encounter Results * [...] are scattered fibroglandular densities. Nika Hanna MD IM MG EXAMS Final Result documented in this encounter Visit Diagnoses Diagnosis Breast screening- Primary Breast screening, unspecified Breast screening Breast screening, unspecified documented in this encounter Additional Health Concerns Infection Onset Date Last Indicated Resolved Time CoV-Presumed 01/03/2022 01/03/2022 01/24/2022 1:23 AM EST Assessment Noted Time PHQ-2 Depression Total Score: 1 11/02/19 21 9:04 AM EDT documented as of this encounter Care Teams Licensing Manager Relationship Specialty Start Date End Date Nika Hanna MD [address] [place] [address], [facility] [address] [place] [address] PCP - General 11/28/16 11/13/21 Tracie Sibley DO [address] [place] [address], [facility] [address] [place] [address] PCP - General Family Medicine 11/14/21 Nika Hanna MD [address] [place] [address], [facility] [address] [place] [address] Insurance Assigned Provider 01/11/1705/18/22 Tracie Sibley DO [address] [place] [address], [address] [place] [address] Insurance Assigned Provider 05/17/23 documented as of this encounter Additional Source Comments The information contained in this document represents components of the legal health record. It is not the complete legal health record.[facility]
--- OUTSIDE RECORDS SUMMARY | 2024-11-30 07:34 | XMS_ITS | Encounter Summary ---
Author Organization [facility] Address [address] [place] [address] Phone Care Team Providers Care Supervisor Instrument Mechanics Name Role Phone Tracie Sibley DO Primary Care Provider [phone] Tracie Sibley DO Unavailable [phone] Encounter Details Date Type Department Care Team (Latest Contact Info) Description 06/17/2022 Transcribe Orders Virtual Department 30 [place] [address] Tracie Sibley, DO 234 [facility], [address] [place] [address] [email or web address] Breast screening (Primary Dx) Social History Tobacco [...] st Contact Info) Description 07/12/2024 Procedure Pass [address] [place] [address] 12/02/2024 3:45 PM EDT Office Visit [facility] Medicine [address] [place] [address] Emmy Wilson, CARLOS 234 [facility] 7 [place] [address] 01/28/2025 1:45 PM EST Appointment [address] [place] [address] Tracie Sibley DO 234 [facility] 7 [place] [address] documented as of this encounter Results * [...] documented as of this encounter Care Teams Supervisor Instrument Mechanics Relationship Specialty Start Date End Date Tracie Sibley DO [address] [place] [address], [address] [place] [address] PCP - General Family Medicine 11/14/21 Tracie Sibley DO [address] [place] [address], [address] [place] [address] Insurance Assigned Provider 05/17/23 documented as of this encounter Additional Source Comments The information contained in this document represents components of the legal health record. It is not the complete legal health record.[facility]
--- OUTSIDE RECORDS SUMMARY | 2024-11-30 07:34 | XMS_ITS | Encounter Summary ---
Author Organization [facility] Address [address] [place] [address] Phone Care Team Providers Care Rope Machine Setter Name Role Phone Nika Hanna MD Primary Care Provider [phone] Nika Hanna MD Unavailable [phone] Tracie Sibley DO Primary Care Provider Tracie Sibley DO Unavailable Encounter Details Date Type Department Care Team (Latest Contact Info) Description 11/04/2018 Transcribe Orders [facility] 234 [place] [address] Mukesh Riley MD, PhD [address] [place] [id number] [email or web address] Disease of thyroid gland (Primary Dx) Social [...] st Contact Info) Description 07/12/2024 Procedure Pass [address] [place] [address] 12/02/2024 3:45 PM EDT Office Visit [facility] 234 [facility] [place] [address] Emmy Wilson, FINAL INSTALLER INSPECTOR 234 [facility], [address] [place] [address] 01/28/2025 1:45 PM EST Appointment [facility] - [address] [place] [address] Tracie Sibley, DO 234 [facility], [address] [place] [address] [email or web address] documented as of this encounter Procedures Procedure [...] EDT) TSH 1.20 0.27 - 4.20 uIU/mL [facility] Blood 11/04/2018 8:20 AM EDT 11/04/2018 8:24 AM EDT Mukesh Riley MD, PhD LAB BLOOD ORDERABLES Fi nal Result Performing Organization Address City/[facility]/ZIP Co de Phone Number [address] [address] * Free T4 (11/04/2018 8:20 AM EDT) FREE T4 1.1 0.9 - 1.7 ng/dL [facility] Blood 11/04/2018 8:20 AM EDT 11/04/2018 8:24 AM EDT Mukesh Riley MD, PhD LAB BLOOD ORDERABLES Fi nal Result Performing Organization Address [facility] Co de Phone Number [address] [address] * Lyme screen with reflex to Western blot, blood (11/04/2018 8:20 AM EDT) Pathologist [facility] Lyme AB IgG Negative Negative [facility] Lyme AB IgM Negative Negative [facility] Blood 11/04/2018 8:20 AM EDT 11/04/2018 8:24 AM EDT Mukesh Riley MD, PhD LAB BLOOD ORDERABLES Fi nal Result Performing Organization Address [facility]/ZIP Co de Phone Number [address] [address] * Hemoglobin A1c (11/04/2018 8:20 AM EDT) Pathologist [facility] HEMOGLOBIN A1C 5.6 4.3 - 5.8 % [facility] Blood 11/04/2018 8:20 AM EDT 11/04/2018 8:24 AM EDT Mukesh Riley MD, PhD LAB BLOOD ORDERABLES Fi nal Result Performing Organization Address City/[facility]/ZIP Co de Phone Number [address] [address] * Creatinine/eGFR (11/04/2018 8:20 AM EDT) CREATININE 0.60 0.5 - 1.5 mg/dL [facility] EGFR 92 >59 mL/min/1.7 3m2 [facility] Comment:If patient is black, multiply result by 1.159. Estimated glomerular filtration rate calculated using the CKD-EPI equation. Blood 11/04/2018 8:20 AM EDT 11/04/2018 8:24 AM EDT Mukesh Riley MD, PhD LAB BLOOD ORDERABLES Fi nal Result Performing Organization Address City/[facility] Co de Phone Number [address] [address] * BUN (11/04/2018 8:20 AM EDT) BUN 16 6 - 19 mg/dL [facility] Blood 11/04/2018 8:20 AM EDT 11/04/2018 8:24 AM EDT Mukesh Riley MD, PhD LAB BLOOD ORDERABLES Fi nal Result Performing Organization Address [facility] Co de Phone Number [address] [address] * Glucose (11/04/2018 8:20 AM EDT) GLUCOSE 95 70 - 99 mg/dL [facility] Blood 11/04/2018 8:20 AM EDT 11/04/2018 8:24 AM EDT Mukesh Riley MD, PhD LAB BLOOD ORDERABLES Fi nal Result Performing Organization Address [facility] Co de Phone Number [address] [address] documented in this encounter Visit Diagnoses Diagnosis Disease of thyroid gland- Primary Unspecified disorder of thyroid documented in this encounter Additional Health Concerns Infection Onset Date Last Indicated Resolved Time CoV-Presumed 01/03/2022 01/03/2022 01/24/2022 1:23 AM EST Assessment Noted Time PHQ-2 Depression Total Score: 1 06/26/19 18 9:06 AM EDT documented as of this encounter Care Teams Rope Machine Setter Relationship Specialty Start Date End Date Nika Hanna MD 234 [facility], [facility] 7 [place] [address] PCP - General 11/28/16 11/13/21 Tracie Sibley DO [address] [place] [address], [facility] 7 [place] [address] [email or web address] PCP - General Family Medicine 11/14/21 Nika Hanna MD [address] [place] [address] 7 [place] [address] Insurance Assigned Provider 01/11/1705/18/22 Tracie Sibley DO [address] [place] [address], [address] [place] [address] [email or web address] Insurance Assigned Provider 05/17/23 documented as of this encounter Additional Source Comments The information contained in this document represents components of the legal health record. It is not the complete legal health record.[facility]
--- OUTSIDE RECORDS SUMMARY | 2024-11-30 07:34 | XMS_ITS | Encounter Summary ---
Author Organization [facility] Address [address] [facility] [place] [address] Phone Care Team Providers Care Routeman Name Role Phone Tracie Sibley DO Primary Care Provider Tracie Sibley DO Unavailable [phone] Reason for Visit * Reason Onset Date Comments Care Coordination 11/26/2024 [facility] Virtual A [place] Outreach Encounter Details Date Type Department Care Team (Late st Contact Info) Description 11/26/[address] [facility] -[facility] TEAM [address] [place] [address] Tracie Sibley, DO 234 [facility] 7 [place] [address] [email or web address] Care Coordination ([facility] Virtual AWV Outreach/) Social History Tobacco Use Types Packs/Day Years [...] as of this encounter Progress Notes * Annmarie Rivera - 11/26/2024 10:21 AM EDT [facility] [facility] Service Organization ([facility]) Annual Wellness Project: Patient has been identified as an individual who would benefit from a virtual Annual Wellness Visitthrough the [facility] [place] [facility] AW[place]. Patient did not answer, left voicemail requesting patient calls [facility] virtual AWV scheduling if interested. Annmarie Rivera P[facility] Routeman documented in this encounter Plan of Treatment Upcoming Encounters Date Type Department Care Team (Late st Contact Info) Description 07/12/2024 Procedure Pass [address] [place] [address] 12/02/2024 3:45 PM EDT Office Visit [facility] Medicine 234 [facility] [place] [address] Emmy Wilson FNP 234 [facility] 7 [place] [address] 01/28/2025 1:45 PM EST Appointment [address] [place] [address] Tracie Sibley DO [address] [place] [address] [place] [address] documented as of this encounter Visit Diagnoses Not on filedocumented in this encounter Additional Health Concerns Assessment Noted Time PHQ-2 Depression Total Score: 2 11/27/19 24 8:20 AM EDT documented as of this encounter Care Teams Routeman Relationship Specialty Start Date End Date Tracie Sibley DO [address] [place] [address] [place] [address] PCP - General Family Medicine 11/14/21 Tracie Sibley DO [address] [place] [address] [place] [address] Insurance Assigned Provider 05/17/23 documented as of this encounter Additional Source Comments The information contained in this document represents components of the legal health record. It is not the complete legal health record.[facility]
--- OUTSIDE RECORDS SUMMARY | 2024-11-30 07:34 | XMS_ITS | Encounter Summary ---
Author Organization [facility] Address [address] [place] [address] Phone Care Team Providers Care Pouncing Machine Operator Name Role Phone Nika Hanna MD Primary Care Provider Nika Hanna MD Unavailable Tracie Sibley DO Primary Care Provider Tracie Sibley DO Unavailable [phone] Encounter Details Date Type Department Care Team (Late st Contact Info) Description 04/13/2018 Ancillary Orders [facility] 234 [place] [address] Nika Hanna MD [address] [place] [address] [address] [place] [address] [email or web address] Breast screening Social History Tobacco Use Types [...] st Contact Info) Description 07/12/2024 Procedure Pass [facility] - [address] [place] [address] 12/02/2024 3:45 PM EDT Office Visit [facility] 234 [facility] [place] [address] PaulEmmy frazier Josie, K [employer] SCHOOL PRINCIPAL 234 [facility], [address] [place] [address] 01/28/2025 1:45 PM EST Appointment [address] [place] [address] Tracie Sibley, 234 [facility], [address] [place] [address] [email or web address] documented as of this encounter Results * [...] Images interpreted in conjunction with R-2 Image Human Resource Professional computer-aided detection (CAD). FINDINGS: BREAST DENSITY: There are scattered fibroglandular densities. There are no suspicious masses, suspicious areas of architectural distortion or suspicious clusters of microcalcifications. Procedure Note Samaria Herr MD - 06/19/2018 BI MAMMOGRAM SCREENING WITH TOMOSYNTHESIS WITH CAD (BILATERAL) HISTORY: Screening. COMPARISON: Prior studies dating back to 02/05/2012, most /09/2018. TECHNIQUE: Digital breast tomosynthesis was performed in [...] documented as of this encounter Care Teams Pouncing Machine Operator Relationship Specialty Start Date End Date Nika Hanna MD [address] [place] [address] [email or web address] PCP - General 11/28/16 11/13/21 Tracie Sibley DO [address] [place] [address] [email or web address] PCP - General Family Medicine 11/14/21 Nika Hanna MD [address] [place] [address] [place] [address] [email or web address] Insurance Assigned Provider 01/11/1705/18/22 Tracie Sibley DO [address] [place] [address] 7 [place] [address] [email or web address] Insurance Assigned Provider 05/17/23 documented as of this encounter Additional Source Comments The information contained in this document represents components of the legal health record. It is not the complete legal health record.[facility]
--- OUTSIDE RECORDS SUMMARY | 2024-11-30 07:34 | XMS_ITS | Encounter Summary ---
Author Organization [facility] Address [address] [place] [address] Phone Care Team Providers Care General Operator Name Role Phone Nika Hanna MD Primary Care Provider Nika Hanna MD Unavailable Tracie Sibley DO Primary Care Provider [phone] Tracie Sibley DO Unavailable [phone] Encounter Details Date Type Department Care Team (Late st Contact Info) Description 06/04/2021 Procedure Pass [facility] - [address] [place] [address] Social History Tobacco Use Types Packs/Day Years [...] high school, GED, job training, learning the [place] language, technical skills, or developing parenting skills)? [...] st Contact Info) Description 07/12/2024 Procedure Pass [address] [place] [address] 12/02/2024 3:45 PM EDT Office Visit [facility] 234 [place] [address] Emmy Wilson FNP 234 [address] [place] [address] 01/28/2025 1:45 PM EST Appointment [address] [place] [address] Tracie Sibley DO 234 [address] [place] [address] documented as of this encounter Visit Diagnoses Not on filedocumented in this encounter Additional Health Concerns Infection Onset Date Last Indicated Resolved Time CoV-Presumed 01/03/2022 01/03/2022 01/24/2022 1:23 AM EST Assessment Noted Time PHQ-2 Depression Total Score: 1 11/02/19 21 9:04 AM EDT documented as of this encounter Care Teams General Operator Relationship Specialty Start Date End Date Nika Hanna MD [address] [place] [address] [place] [address] [email or web address] PCP - General 11/28/16 11/13/21 Tracie Sibley DO [address] [place] [address] 7 [place] [address] [email or web address] PCP - General Family Medicine 11/14/21 Nika Hanna MD [address] [place] [address] 7 [place] [address] Insurance Assigned Provider 01/11/1705/18/22 Tracie Sibley DO [address] [place] [address] 7 [place] [address] Insurance Assigned Provider 05/17/23 documented as of this encounter Additional Source Comments The information contained in this document represents components of the legal health record. It is not the complete legal health record.[facility]
--- NOTE | 2024-11-30 07:35 | CA_ITS ---
Acquisition Time: 2024-11-30 07:56:11 Total Exercise Time: 00:05:00 Test Indications: ABN EKG Medications: SEE H&P Protocol: ALEXIS Max HR: 137 BPM 95% of Pred: 144 BPM Max BP: 190/68 mmHG Max Work Load: 7.0 METS Exercise stress test with exercise 5 mins of Alexis Protocol, achieving 95% MPHR, with reports of SOB, no chest pain, without any arrythmias, with normotensive response to exercise. Without any EKG changes meeting criteria for ischemia. In recovery, pt's breathing returned to baseline. Test reviewed with Dr. Garcia. Referred By: Marcelo Mathews Electronically Signed By: Walt Jane
--- OUTSIDE RECORDS SUMMARY | 2024-11-30 07:35 | XMS_ITS | Encounter Summary ---
Author Organization [facility] Address [address] [place] [address] Phone Care Team Providers Care Book Critic Name Role Phone Tracie Sibley DO Primary Care Provider [phone] Tracie Sibley DO Unavailable [phone] Encounter Details Date Type Department Care Team (Latest Contact Info) Description 07/12/2024 Transcribe Orders Virtual Department 30 [place] [address] Tracie Sibley, DO 234 [facility], [address] [place] [address] [email or web address] Breast screening (Primary Dx) Social History Tobacco [...] st Contact Info) Description 07/12/2024 Procedure Pass [facility] - [address] [place] [address] 12/02/2024 3:45 PM EDT Office Visit [facility] 234 [facility] [place] [address] Emmy Wilson FNP 234 [facility], [address] [place] [address] 01/28/2025 1:45 PM EST Appointment [address] [place] [address] Tracie Sibley DO 234 [facility], [address] [place] [address] Scheduled Orders Name Type Priority Associated Diagnoses Orde r Schedule Mammogram Screening (Bilateral) Imaging Routine Breast screening Expected: 08/11/2024, Expires: 07/12/2025 documented as of this encounter Visit Diagnoses Diagnosis Breast screening- Primary Breast screening, unspecified documented in this encounter Additional Health Concerns Assessment Noted Time PHQ-2 Depression Total Score: 2 11/27/19 24 8:20 AM EDT documented as of this encounter Care Teams Book Critic Relationship Specialty Start Date End Date Tracie Sibley DO 234 [facility], [facility] 7 [place] [address] PCP - General Family Medicine 11/14/21 Tracie Sibley DO [address] [facility], [facility] 7 [place] [address] Insurance Assigned Provider 05/17/23 documented as of this encounter Additional Source Comments The information contained in this document represents components of the legal health record. It is not the complete legal health record.[facility]
--- OUTSIDE RECORDS SUMMARY | 2024-11-30 07:35 | XMS_ITS | Encounter Summary ---
Author Organization [facility] Address [address] [place] [address] Phone Care Team Providers Care Sweatband Cutting Machine Operator Name Role Phone Nika Hanna MD Primary Care Provider Nika Hanna MD Unavailable Tracie Sibley DO Primary Care Provider Tracie Sibley DO Unavailable Encounter Details Date Type Department Care Team (Latest Contact Info) Description 01/19/2018 Transcribe Orders [facility] 234 [place], [place] [address] Nika Hanna MD [address] [place] [address] [address] [place], [place] [id number] [email or web address] Routine general medical examination at a [...] st Contact Info) Description 07/12/2024 Procedure Pass [address] [place] [address] 12/02/2024 3:45 PM EDT Office Visit [facility] 234 [place] [address] Emmy Wilson FNP 234 [facility], [address] [place] [address] 01/28/2025 1:45 PM EST Appointment [facility] - [address] [place] [address] Tracie iSbley DO 234 [facility], [address] [place] [address] [email or web address] documented as of this encounter Results * Comprehensive metabolic panel (01/19/2018 12:07 PM EST) SODIUM 141 133 - 146 mmol/L [facility] POTASSIUM 4.0 3.3 - 5.1 mmol/L [facility] CHLORIDE 103 96 - 108 mmol/L [facility] CO2 29 21 - 35 mmol/L [facility] BUN 15 6 - 19 mg/dL [facility] CREATININE 0.70 0.5 - 1.5 mg/dL [facility] GLUCOSE 97 70 - 99 mg/dL [facility] ALBUMIN 4.0 3.9 - 4.8 g/dL [facility] TOTAL PROTEIN 6.6 6.5 - 8.0 g/dL [facility] CALCIUM 9.3 8.4 - 10.3 mg/dL [facility] ALKALINE PHOSPHATASE 79 39 - 117 U/L [facility] TOTAL BILIRUBIN 0.3 0.0 - 1.2 mg/dL [facility] AST 18 0 - 37 U/L [facility] ALT 24 0 - 40 U/L [facility] GLOBULIN 2.6 1 - 4.8 g/dL [facility] EGFR 88 >59 mL/min/1.7 3m2 [facility] Comment:If patient is black, multiply result by 1.159. Estimated glomerular filtration rate calculated using the CKD-EPI equation. ANION GAP 13 10 - 20 mmol/L [facility] Blood 01/19/2018 12:0 7 PM EST 01/19/2018 12:08 PM EST Nika Hanna MD LAB BLOOD ORDERABLES Final Re sult [facility] [address] [place] [address] documented in this encounter Visit Diagnoses Diagnosis Routine general medical examination at a health care facility- Primary documented in this encounter Additional Health Concerns Infection Onset Date Last Indicated Resolved Time CoV-Presumed 01/03/2022 01/03/2022 01/24/2022 1:23 AM EST Assessment Noted Time PHQ-2 Depression Total Score: 1 06/26/19 18 9:06 AM EDT documented as of this encounter Care Teams Sweatband Cutting Machine Operator Relationship Specialty Start Date End Date Nika Hanna MD 234 [facility], [facility] 7 [place] [address] PCP - General 11/28/16 11/13/21 Tracie Sibley DO [address] [place] [address], [facility] 7 [place] [address] PCP - General Family Medicine 11/14/21 Nika Hanna MD [address] [place] [address], [facility] 7 [place] [address] Insurance Assigned Provider 01/11/1705/18/22 Tracie Sibley DO 234 [facility], [facility] 7 [place] [address] [email or web address] Insurance Assigned Provider 05/17/23 documented as of this encounter Additional Source Comments The information contained in this document represents components of the legal health record. It is not the complete legal health record.[facility]
--- OUTSIDE RECORDS SUMMARY | 2024-11-30 07:35 | XMS_ITS | Clinical Summary ---
Author Organization [facility] Address [address] [place] [address] Phone Care Team Providers Care Ecommerce Analyst Name Role Phone EspinozaTracie DO Primary Care Provider [phone] Tracie Sibley DO Unavailable [phone] Medications betamethasone dipropionate 0.05 % lotion APPLY [...] 12/18/2016 Overview (04/17/2023): Followed by Dr [facility] Cystoscopy 2022 Obesity, morbid Overview (11/21/2022): [...] She understands and agrees. Vertigo 12/18/2016 11/27/2023 Encounters Date Type Department Care Team Description 11/26/2024 Telephone [facility] [address] [place] [address] Tracie Sibley DO Care Coordination ([facility] Virtual AWV Outreach/) from Last 3 Months Immunizations Immunization Administration Dates Next Due COVID-19 [...] st Contact Info) Description 07/12/2024 Procedure Pass [address] [place] [address] 12/02/2024 3:45 PM EDT Office Visit [facility] Medical [facility] Medicine [address] [place] [address] Emmy Wilson FNP 234 [facility], [address] [place] [address] 01/28/2025 1:45 PM EST Appointment [address] [place] [address] Tracie Sibley, 234 [facility], [address] [place] [address] [email or web address] Health Maintenance Due Date Last Done Comments [...] Completed 03/20/2015, 03/16/2014 ZOSTER VACCINES Completed 06/20/2018, 07/2018, 01/18/2009 SMOKING STATUS SCREENING (Once After [...] (11/17/2023 9:20 AM EDT) HDL 47 mg/dL [facility] Comment: Interpretation <40 mg/dL: Low HDL cholesterol (major risk factor for CHD) Greater than or equal to 60 mg/dL: High HDL cholesterol ( negative risk factor for CHD) HDL - cholesterol is affected by a number of factors, e.g. smoking, excerise, hormones, sex and age. CHOLESTEROL 228 0 - 240 mg/dL [facility] TRIGLYCERIDES 307(H) 30 - 160 mg/dL [facility] LDL 120 50 - 129 mg/dL [facility] Comment: LDL levels in terms of risk for coronary heart disease: <100 mg/dL: Optimal 100-129 mg/dL: Near or above optimal 130-159 mg/dL: Borderline high 160-189 mg/dL: High >190 mg/dL: Very High CARDIAC RISK RATIO 4.9(H) 3.3 - 4.4 [facility] Blood 11/17/2023 9:20 AM EDT 11/17/2023 9:27 AM EDT us Tracie Sibley DO LAB BLOOD ORDERABLES Final Re sult [facility] [address] [place] [address] * BI MAMMOGRAM SCREENING WITH TOMOSYNTHESIS WITH [...] notified of the results and recommendations. Tracie Doranus DO IMG MG EXAMS Final Result * COLONOSCOPY FOR RESULT ENTRY ONLY (05/17/2021) Historical Provider HEALTH MAINTENANCE Final Result * Outside Hepatitis C Virus Screening (02/02/2013) Pathologist [facility] Hepatitis C Screening - External Neg Result [facility] Historical Provider LAB BLOOD ORDERABLES Karolina l Result * OUTSIDE BONE DENSITY SCREENING (02/08/2010) Pathologist [facility] BONE DENSITY SCREENING - EXTERNAL normal Historical Provider HEALTH MAINTENANCE Final Result from Last 3 Months or Most Recently Relevant to Health Maintenance Insurance MEDIC[place] PART [place] [id number] [facility] MEDICARE SUPPLEMENT MEDICARE PART A & [place] [id number] MEDICARE PART A & B [employer] MEDICARE SUPPLEMENT MEDICARE PART A & B [facility] MEDICARE SUPPLEMENT MEDICARE PART A & B MEDICARE SUPPLEMENT MEDICARE PART A & B MEDICARE SUPPLEMENT MEDICARE PART A & B Member Subscriber Plan / Payer ( fective 2013-Present) Name:Toan Tate Member ID:[id number] Relation to Subscriber:Self Name:Toan Tate Subscriber ID:[id number] Payer ID:[id number] Group ID:Not on file Type:Medicare Address: [employer] [address] [facility] MEDICARE SUPPLEMENT MEDICARE PART A & B [employer] [facility] MEDICARE SUPPLEMENT MEDICARE PART A & B [facility] [employer] [place] [phone] Care Teams Ecommerce Analyst Relationship Specialty Start Date End Date Tracie Sibley DO 234 [facility] 7 [place] [address] PCP - General Family Medicine 11/14/21 Tracie Sibley DO [address] [place] [address] 7 [place] [address] Insurance Assigned Provider 05/17/23 Additional Source Comments The information contained in this document represents components of the legal health record. It is not the complete legal health record.[facility]
--- OUTSIDE RECORDS SUMMARY | 2024-11-30 07:35 | XMS_ITS | Encounter Summary ---
Author Organization [facility] Address [address] [place] [address] Phone Care Team Providers Care Switching Operator Name Role Phone Tracie Sibley DO Primary Care Provider Tracie Sibley DO Unavailable [phone] Encounter Details Date Type Department Care Team (Late st Contact Info) Description 06/09/2023 Procedure Pass [facility] - [address] [place] [address] Social History Tobacco Use Types Packs/Day Years [...] Contact Info) Description 07/12/2024 Procedure Pass [address] [place] [address] 12/02/2024 3:45 PM EDT Office Visit [facility] Medical [facility] Medicine [address] [place] [address] [address] Emmy Wilson FNP [address] [address] 01/28/2025 1:45 PM EST Appointment [address] [place] [address] Tracie Sibley DO 234 [address] [place] [address] [email or web address] documented as of this encounter Visit Diagnoses Not on filedocumented in this encounter Additional Health Concerns Assessment Noted Time PHQ-2 Depression Total Score: 0 11/15/19 7:56 AM EDT documented as of this encounter Care Teams Switching Operator Relationship Specialty Start Date End Date Tracie Sibley DO [address] [place], [place] [address] [address] [email or web address] PCP - General Family Medicine 11/14/21 Tracie Sibley DO [address] [place] [address] 7 [place] [address] [email or web address] Insurance Assigned Provider 05/17/23 documented as of this encounter Additional Source Comments The information contained in this document represents components of the legal health record. It is not the complete legal health record.[facility]
--- OUTSIDE RECORDS SUMMARY | 2024-11-30 07:35 | XMS_ITS | Encounter Summary ---
Author Organization [facility] Address [address] [place] [address] Phone Care Team Providers Care Bisque Kiln Drawer Name Role Phone Tracie Sibley DO Primary Care Provider [phone] Tracie Sibley DO Unavailable [phone] Encounter Details Date Type Department Care Team (Latest Contact Info) Description 06/09/2023 Transcribe Orders Virtual Department 30 [place] [address] Tracie Sibley, DO 234 [facility], [address] [place] [address] [email or web address] Breast screening (Primary Dx) Social History Tobacco [...] st Contact Info) Description 07/12/2024 Procedure Pass [address] [place] [address] 12/02/2024 3:45 PM EDT Office Visit [facility] 234 [place] [address] Emmy Wilson FNP 234 [facility] 7 [place] [address] 01/28/2025 1:45 PM EST Appointment [address] [place] [address] Tracie Sibley DO 234 [facility], [address] [place] [address] documented as of this encounter Results * [...] documented as of this encounter Care Teams Bisque Kiln Drawer Relationship Specialty Start Date End Date Tracie Sibley DO 234 [facility], [facility] 7 [place] [address] PCP - General Family Medicine 11/14/21 Tracie Sibley DO 234 [facility], [facility] 7 [place] [address] Insurance Assigned Provider 05/17/23 documented as of this encounter Additional Source Comments The information contained in this document represents components of the legal health record. It is not the complete legal health record.[facility]
--- OUTSIDE RECORDS SUMMARY | 2024-11-30 07:35 | XMS_ITS | Encounter Summary ---
Author Organization [facility] Address [address] [place] [address] Phone Care Team Providers Care Inhalation Therapy Aide Name Role Phone Nika Hanna MD Primary Care Provider [phone] Nika Hanna MD Unavailable Tracie Sibley DO Primary Care Provider [phone] Tracie Sibley DO Unavailable [phone] Encounter Details Date Type Department Care Team (Late st Contact Info) Description 07/11/2020 Ancillary Orders [address] [address] Nika Hanna MD [address] [place] [address] [address] [place] [address] [email or web address] Breast screening Social [...] high school, GED, job training, learning the Bulgarian language, technical skills, or developing parenting skills)? [...] st Contact Info) Description 07/12/2024 Procedure Pass [address] [place] [address] 12/02/2024 3:45 PM EDT Office Visit [facility] Medical [facility] Medicine 234 [place] [address] Emmy Wilson, CARLOS [address] [address] 01/28/2025 1:45 PM EST Appointment [address] [place] [address] Tracie Sibley, [address] [address] documented as of this encounter Results * [...] documented as of this encounter Care Teams Inhalation Therapy Aide Relationship Specialty Start Date End Date Nika Hanna MD 234 [facility] 7 [place] [address] PCP - General 11/28/16 11/13/21 Tracie Sibley DO [address] [place] [address] 7 [place] [address] PCP - General Family Medicine 11/14/21 Nika Hanna MD [address] [place] [address] 7 [place] [address] Insurance Assigned Provider 01/11/1705/18/22 Tracie Sibley DO [address] [place] [address] 7 [place] [address] Insurance Assigned Provider 05/17/23 documented as of this encounter Additional Source Comments The information contained in this document represents components of the legal health record. It is not the complete legal health record.[facility]
--- OUTSIDE RECORDS SUMMARY | 2024-11-30 07:35 | XMS_ITS | Encounter Summary ---
Author Organization [facility] Address [address] [place] [address] Phone Care Team Providers Care Science Consultant Name Role Phone Tracie Sibley DO Primary Care Provider [phone] Tracie Sibley DO Unavailable [phone] Reason for Visit * Reason Onset Date Comments Follow-up 05/16/2023 Palpitations 05/16/2023 Encounter Details Date Type Department Care Team (Late st Contact Info) Description 05/16/2023 Nurse Triage [facility] 234 [place] [address] Tracie Sibley, DO 234 [facility] 7 [place] [address] [email or web address] Follow-up; Palpitations Social History Tobacco Use Types [...] Mix RN - 05/19/2023 4:42 PM EDT [facility] ED notes are scanned into patient's [...] well.) Protocols used: Heart Rate and Heartbeat [id number] Nurse Triage Encounter Note Reason for Triage Toan Tate contacted office for Follow-Up,Palpitations Call Disposition See Today In Office Patient/caregiver understands and will follow disposition: Yes Patient/caregiver understands and will follow care advice: Yes, With Modifications Disposition Comments: Protocols used: Heart Rate And Heartbeat [id number] Initial Symptom Screening and Assessment IA Symptom Onset 3-5 days Symptom Severity Mild - does not interfere with normal activities Symptom Pattern Intermittent (comes and goes) Aggravating factors or triggers Unsure Location? Chest Fever? No Pain level No pain reported Medication Considerations Anticoagulant Recent surgery? No Known allergy? No Recent travel? No Other related symptoms patient evaluated in [facility] ED for DVT. started on Eliquis. since [...] Please contact pt and advise. Central Support Business Banker (Please do not reply to this user; this inbox is not monitored.) Thank you. * Joshua Alexander - 05/16/2023 4:30 PM EDT Pt called to schedule a f/u for a recent emergency department visit. Pt stated that she was seen [facility] for a blood clot. collections agent unable to schedule f/u within timeframeguidelines. Please contact pt and advise. Central Support Business Banker (Please do not reply to this user; this inbox is not monitored.) Thank you. documented in this encounter Plan of Treatment Upcoming Encounters Date Type Department Care Team (Late st Contact Info) Description 07/12/2024 Procedure Pass [address] [place] [address] 12/02/2024 3:45 PM EDT Office Visit [facility] Medicine 234 [facility] [place] [address] Emmy Wilson FNP [address] [place] [address] [place] [address] 01/28/2025 1:45 PM EST Appointment [address] [place] [address] Tracie Sibley DO [address] [place] [address] [place] [address] [employer] documented as of this encounter Visit Diagnoses Not on filedocumented in this encounter Additional Health Concerns Assessment Noted Time PHQ-2 Depression Total Score: 0 11/15/19 7:56 AM EDT documented as of this encounter Care Teams Science Consultant Relationship Specialty Start Date End Date Tracie Sibley DO [address] [place] [address] [place] [address] PCP - General Family Medicine 11/14/21 Tracie Sibley DO [address] [place] [address] [place] [address] Insurance Assigned Provider 05/17/23 documented as of this encounter Additional Source Comments The information contained in this document represents components of the legal health record. It is not the complete legal health record.[facility]
--- OUTSIDE RECORDS SUMMARY | 2024-11-30 07:35 | XMS_ITS | Encounter Summary ---
Author Organization [facility] Address [address] [place] [address] Phone Care Team Providers Care Lapper Name Role Phone rTacie Sibley DO Primary Care Provider [phone] Tracie Sibley DO Unavailable [phone] Reason for Referral * Hospital - Outpatient - Closed Specialty Diagnoses / Procedures Referred By Tavo hairston Referred To Contact Radiology Diagnoses History of DVT (deep vein thrombosis) Procedures US Lower Extremity Veins Duplex (Right) US Lower Extremity Arteries Duplex Complete (Bilateral) Tracie Sibley DO Phone: tel: fax: [email or web address] Referral ID Status Reason Start Date Expiration Date Visits Re quested Visits Authorized [id number] Closed 04/06/2024 1 1 Encounter Details Date Type Department Care Team (Late st Contact Info) Description 04/13/2024 Ancillary Orders [facility] Medicine 234 [place] [address] Tracie Sibley DO 234 [facility], [address] [place] [address] [email or web address] History of DVT (deep vein thrombosis) (Primary [...] Contact Info) Description 07/12/2024 Procedure Pass [address] [place] [address] 12/02/2024 3:45 PM EDT Office Visit [facility] 234 [place] [address] Emmy Wilson, CARLOS 234 [facility], [address] [place] [address] 01/28/2025 1:45 PM EST Appointment [address] [place] [address] Tracie Sibley DO 234 [facility], [facility] 7 [place] [address] documented as of this encounter Results * [...] the visualizedveins of the right lower extremity. Tracie Sibley DO CV US VASCULAR Final Result documented in this encounter Visit Diagnoses Diagnosis History of DVT (deep vein thrombosis) History of DVT (deep vein thrombosis)- Primary documented in this encounter Additional Health Concerns Assessment Noted Time PHQ-2 Depression Total Score: 2 11/27/19 24 8:20 AM EDT documented as of this encounter Care Teams Lapper Relationship Specialty Start Date End Date Tracie Sibley DO 234 [facility], [facility] 7 [place] [address] PCP - General Family Medicine 11/14/21 Tracie Sibley DO 234 [facility], [facility] 7 [place] [address] Insurance Assigned Provider 05/17/23 documented as of this encounter Additional Source Comments The information contained in this document represents components of the legal health record. It is not the complete legal health record.[facility]
--- OUTSIDE RECORDS SUMMARY | 2024-11-30 07:35 | XMS_ITS | Encounter Summary ---
Author Organization [facility] Address [address] [place] [address] Phone Care Team Providers Care Youth Services Specialist Name Role Phone Maryjo Tracie Z DO Primary Care Provider [phone] Tracie Sibley DO Unavailable [phone] Encounter Details Date Type Department Care Team (Latest Contact Info) Description 06/24/2022 Transcribe Orders Virtual Department 30 [place] [address] Rosalba Morel, CLARE 10 [place] [address] [email or web address] Epigastric abdominal pain (Primary Dx); RUQ abdominal [...] st Contact Info) Description 07/12/2024 Procedure Pass [address] [place] [address] 12/02/2024 3:45 PM EDT Office Visit [facility] Medicine 234 [facility] [place] [address] Emmy Wilson FNP [address] [place] [address] [place] [address] [email or web address] 01/28/2025 1:45 PM EST Appointment [address] [place] [address] Tracie Sibley DO [address] [address] [email or web address] documented as of this encounter Visit Diagnoses Diagnosis Epigastric abdominal pain- Primary Abdominal pain, epigastric RUQ abdominal pain Abdominal pain, right upper quadrant Nausea Nausea alone documented in this encounter Additional Health Concerns Assessment Noted Time PHQ-2 Depression Total Score: 0 11/15/19 22 7:56 AM EDT documented as of this encounter Care Teams Youth Services Specialist Relationship Specialty Start Date End Date Tracie Sibley DO [address] [address] [place] [address] [email or web address] PCP - General Family Medicine 11/14/21 Tracie Sibley DO [address] [place] [address] 7 [place] [address] Insurance Assigned Provider 05/17/23 documented as of this encounter Additional Source Comments The information contained in this document represents components of the legal health record. It is not the complete legal health record.[facility]
--- OUTSIDE RECORDS SUMMARY | 2024-11-30 07:35 | XMS_ITS | Encounter Summary ---
Author Organization [facility] Address [address] [place] [address] Phone Care Team Providers Care Database Marketing Manager Name Role Phone Nika Hanna MD Primary Care Provider [phone] Nika Hanna MD Unavailable [phone] Tracie Sibley DO Primary Care Provider [phone] Tracie Sibley DO Unavailable Encounter Details Date Type Department Care Team (Late st Contact Info) Description 04/08/2019 Ancillary Orders [address] [address] Nika Hanna MD [address] [place] [address] [address] [place] [address] [email or web address] Breast screening Social History Tobacco Use Types [...] st Contact Info) Description 07/12/2024 Procedure Pass [facility] - [address] [place] [address] 12/02/2024 3:45 PM EDT Office Visit [facility] 234 [facility] [address] Emmy Wilson, EMOTIONAL DISABILITIES TEACHER 234 [facility], [address] [place] [address] 01/28/2025 1:45 PM EST Appointment [address] [place] [address] Tracie Sibley, DO 234 [facility], [address] [place] [address] [email or web address] documented as of this encounter Results * [...] and compared with multiple prior studies, most jypnhkrx73/10/2019, with utilization of computer-aided detection. The breast [...] documented as of this encounter Care Teams Database Marketing Manager Relationship Specialty Start Date End Date Nika Hanna MD 234 [facility], [facility] 7 [place] [address] [email or web address] PCP - General 11/28/16 11/13/21 Tracie Sibley DO [address] [place] [address], [facility] 7 [place] [address] PCP - General Family Medicine 11/14/21 Nika Hanna MD [address] [place] [address], [facility] 7 [place] [address] [email or web address] Insurance Assigned Provider 01/11/1705/18/22 Tracie Sibley DO [address] [place] [address], [facility] 7 [place] [address] Insurance Assigned Provider 05/17/23 documented as of this encounter Additional Source Comments The information contained in this document represents components of the legal health record. It is not the complete legal health record.[facility]
--- OUTSIDE RECORDS SUMMARY | 2024-11-30 07:35 | XMS_ITS | Encounter Summary ---
Author Organization Located Within [facility] Address [address] [place] [address] Phone Care Team Providers Care Clam Shucking Machine Tender Name Role Phone Nika Hanna MD Primary Care Provider [phone] Nika Hanna MD Unavailable Tracie Sibley DO Primary Care Provider [phone] Tracie Sibley DO Unavailable [phone] Encounter Details Date Type Department Care Team (Late st Contact Info) Description 07/11/2020 Procedure Pass [facility] - [address] [place] [address] Social History Tobacco Use Types Packs/Day Years [...] high school, GED, job training, learning the [place] language, technical skills, or developing parenting skills)? [...] st Contact Info) Description 07/12/2024 Procedure Pass [address] [place] [address] 12/02/2024 3:45 PM EDT Office Visit [facility] [address] [place] [address] Emmy Wilson FNP [address] [place] [address] 01/28/2025 1:45 PM EST Appointment [address] [place] [address] Tracie Sibley DO [address] [place] [address] documented as of this encounter Visit Diagnoses Not on filedocumented in this encounter Additional Health Concerns Infection Onset Date Last Indicated Resolved Time CoV-Presumed 01/03/2022 01/03/2022 01/24/2022 1:23 AM EST Assessment Noted Time PHQ-2 Depression Total Score: 1 06/26/19 18 9:06 AM EDT documented as of this encounter Care Teams Clam Shucking Machine Tender Relationship Specialty Start Date End Date Nika Hanna MD [address] [address] [place] [address] [email or web address] PCP - General 11/28/16 11/13/21 Tracie Sibley DO [address] [place] [address] [address] [place] [address] [email or web address] PCP - General Family Medicine 11/14/21 Nika Hanna MD [address] [place] [address] 7 [place] [address] Insurance Assigned Provider 01/11/1705/18/22 Tracie Sibley DO [address] [place] [address] [address] [place] [address] Insurance Assigned Provider 05/17/23 documented as of this encounter Additional Source Comments The information contained in this document represents components of the legal health record. It is not the complete legal health record.Loc[facility]
--- OUTSIDE RECORDS SUMMARY | 2024-11-30 07:35 | XMS_ITS | Encounter Summary ---
Author Organization [facility] Address [address] [place] [address] Phone Care Team Providers Care Glass Setter Name Role Phone Nika Hanna MD Primary Care Provider [phone] Nika Hanna MD Unavailable Tracie Sibley DO Primary Care Provider [phone] Tracie Sibley DO Unavailable [phone] Encounter Details Date Type Department Care Team (Late st Contact Info) Description 03/27/2021 Procedure Pass [facility] - [address] [id number] Social History Tobacco Use Types Packs/Day Years [...] high school, GED, job training, learning the [place] language, technical skills, or developing parenting skills)? [...] st Contact Info) Description 07/12/2024 Procedure Pass [address] [place] [address] 12/02/2024 3:45 PM EDT Office Visit [facility] [address] [place] [address] Emmy Wilson FNP [address] [place] [address] 01/28/2025 1:45 PM EST Appointment [address] [place] [address] Tracie Sibley DO [address] [place] [address] documented as of this encounter Visit Diagnoses Not on filedocumented in this encounter Additional Health Concerns Infection Onset Date Last Indicated Resolved Time CoV-Presumed 01/03/2022 01/03/2022 01/24/2022 1:23 AM EST Assessment Noted Time PHQ-2 Depression Total Score: 1 11/02/19 21 9:04 AM EDT documented as of this encounter Care Teams Glass Setter Relationship Specialty Start Date End Date Nika Hanna MD [address] [address] [place] [address] [email or web address] PCP - General 11/28/16 11/13/21 Tracie Sibley DO [address] [place] [address] [address] [place] [address] [email or web address] PCP - General Family Medicine 11/14/21 Nika Hanna MD [address] [place] [address] 7 [place] [address] Insurance Assigned Provider 01/11/1705/18/22 Tracie Sibley DO [address] [place] [address] [address] [place] [address] Insurance Assigned Provider 05/17/23 documented as of this encounter Additional Source Comments The information contained in this document represents components of the legal health record. It is not the complete legal health record.[facility]
--- OUTSIDE RECORDS SUMMARY | 2024-11-30 07:35 | XMS_ITS | Encounter Summary ---
Author Organization [facility] Address [address] [place] [address] Phone Care Team Providers Care Music Therapist Name Role Phone Nika Hanna MD Primary Care Provider Nika Hanna MD Unavailable Tracie Sibley DO Primary Care Provider [phone] Tracie Sibley DO Unavailable Encounter Details Date Type Department Care Team (Late st Contact Info) Description 05/15/2017 Ancillary Orders [address] [address] Nika Hanna MD [address] [place] [address] [address] [place] [address] [email or web address] Breast screening Social History Tobacco Use Types [...] st Contact Info) Description 07/12/2024 Procedure Pass [place] [facility] - [address] [place] [address] 12/02/2024 3:45 PM EDT Office Visit [facility] [address] [place] [address] Emym Wilson, COMPUTER ENGINEERING PROFESSOR 234 [facility], [address] [place] [address] 01/28/2025 1:45 PM EST Appointment [address] [place], [place] [address] Tracie Sibley, 234 [facility], [address] [place] [address] [email or web address] documented as of this encounter Results * [...] documented as of this encounter Care Teams Music Therapist Relationship Specialty Start Date End Date Nika Hanna MD [address] [place] [address], [facility] [address] [place] [address] [email or web address] PCP - General 11/28/16 11/13/21 Tracie Sibley DO [address] [place] [address], [facility] [address] [place] [address] PCP - General Family Medicine 11/14/21 Nika Hanna MD [address] [place] [address], [facility] [address] [place] [address] Insurance Assigned Provider 01/11/1705/18/22 Tracie Sibley DO [address] [place] [address], [facility] [address] [place] [address] Insurance Assigned Provider 05/17/23 documented as of this encounter Additional Source Comments The information contained in this document represents components of the legal health record. It is not the complete legal health record.[facility]
== END ==
LOC: HO.CARD 07:31
PROVIDERS: PCP Family Medicine; Visit Provider Internal Medicine
DX: R07.2 Precordial pain (principal)
CPT/HCPCS: 93017

== ENCOUNTER → 2024-11-30 07:35 | Outpatient (BNV) | payer MEDICARE, OTHER, SELFPAY | PROVIDERS: PCP Family Medicine | DX: R06.02 Shortness of breath (principal) | CPT/HCPCS: 93016; 93018 ==